=== PATIENT | male | born 1950 | race Caucasian/White ===

== ENCOUNTER 2017-05-06 07:32 | Inpatient (IN) ==
[2017-05-06] MEDS ORDERED: LACTATED RINGERS 1,000 ML IV ONE (08:05)
--- NOTE | 2017-05-06 08:05 | Emergency Department Note ---
Fall HPI - General Chief Complaint: Fall Stated Complaint: Fall Time Seen by Provider: 05/06/17 07:56 Source: EMS Mode of arrival: EMS - History of Present Illness HPI Narrative: This patient has fallen twice since Wednesday last night fell about 830 slipped out of a chair and was unable to get up so spent the night on the floor. His son found him this morning and had a brought to the emergency room. This patient lives alone and admits to being a drinker and has had diabetes for 25 years with peripheral neuropathy and leg weakness. He did injure his left rib cage on Wednesday and a fall but says he feels quite a bit better now from that standpoint. Denies any significant chest pain abdominal pain or focal neurologic weakness and change. - Related Data Home Medications Medication Instructions Recorded Confirmed aspirin 81 mg tablet,delayed 81 mg PO QDAY tab 11/28/14 11/20/16 release atorvastatin 20 mg tablet 20 mg PO QDAY tab 11/28/14 11/20/16 cyanocobalamin (vit B-12) 1,000 1,000 mcg PO QDAY tab 11/28/14 11/20/16 mcg tablet glipizide 5 mg tablet 5 mg PO QAM tab 11/28/14 11/20/16 sildenafil 100 mg tablet 100 mg PO ONCE tab 11/28/14 11/20/16 folic acid 400 mcg tablet 400 mcg PO QDAY 03/21/15 11/20/16 omega-3 fatty acids 1,000 mg 2,000 mg PO BID cap 03/21/15 11/20/16 capsule Previous Rx's Medication Instructions Recorded fenofibrate nanocrystallized 48 mg 48 mg PO QDAY #90 tab 08/08/15 tablet gabapentin 300 mg capsule 300 mg PO BID #180 cap 10/26/16 benazepril 5 mg tablet 2.5 mg PO QDAY #45 tab 01/14/17 Allergies Allergy/AdvReac Type Severity Reaction Status Date / Time acetaminophen [From Percocet] Allergy Unknown Verified 05/06/17 07:38 Oxycodone [From Percocet] Allergy Unknown Verified 05/06/17 07:38 Review of Systems Constitutional: Denies: fever Eyes: Denies: eye pain ENT ED: Denies: ear pain, throat pain Cardiovascular: Denies: chest pain Respiratory: Denies: shortness of breath, cough Gastrointestinal: Denies: abdominal pain, nausea Genitourinary: Denies: dysuria Musculoskeletal: Reports: back pain Integumentary: Denies: rash Neurological: Denies: headache Fall PMH - Past Medical History [facility] Narrative: Medical History (Last Reviewed 11/20/16 @ 14:20 by Selam Frias MD) Chronic kidney disease, stage II (mild) (Chronic) Hypertensive renal disease (Chronic) Chronic kidney disease, stage III (moderate) (Chronic) CKD stage 3 secondary to diabetes (Chronic) ED (erectile dysfunction) of non-organic origin (Chronic) Osteoarthritis of knees, bilateral (Chronic) DM (diabetes mellitus) type II controlled, neurological manifestation (Chronic) Essential hypertension (Chronic) GERD (gastroesophageal reflux disease) (Chronic) Edema (Chronic) Pure hyperglyceridemia (Chronic) Hyperlipidemia (Chronic) Lumbago (Chronic) Renal disease (Chronic) Morbid obesity (Chronic) Drug-induced hepatotoxicity (Chronic) Hemangioma (Chronic) Benign neoplasm of skin (Chronic) Past Surgical History (Last Reviewed 11/20/16 @ 14:20 by Selam Frias MD) History of carpal tunnel release of both wrists (Chronic) Family History (Last Reviewed 11/20/16 @ 14:20 by Selam Frias MD) father History of coronary artery bypass surgery, Onset Age: 81 maternal side of family Malignant neoplasm of colon brother Type 2 diabetes mellitus maternal side family Cerebrovascular accident (CVA) - Social History smoking status: Former smoker Physical Exam This patient really cannot lift his legs off the table. However he has reasonable strength in his feet on testing. Limitations: no limitations General appearance: alert, in no apparent distress Head: atraumatic, normocephalic Eye: Present: normal appearance ENT: normal exam Neck: Present: normal inspection Chest: Present: normal inspection Respiratory: Present: normal lung sounds bilaterally Cardiovascular: Present: regular rate, normal rhythm, normal heart sounds Abdominal: Present: soft. Absent: distention, tenderness Neurological: Present: alert Motor strength - LUE: 5/5 Motor strength - RUE: 5/5 Motor strength - LLE: 1/5 Motor strength - RLE: 1/5 Psychiatric: Present: normal affect, normal mood Skin: Present: warm, dry, intact Course Vital Signs Temperature 97.8 F 05/06/17 07:33 Pulse Rate 98 H 05/06/17 07:33 Respiratory Rate 14 05/06/17 07:33 Blood Pressure 158/99 05/06/17 07:33 Pulse Oximetry (%) 92 05/06/17 07:33 Temperature 97.8 F 05/06/17 07:33 Pulse Rate 93 H 05/06/17 08:51 Respiratory Rate 17 05/06/17 08:51 Blood Pressure 136/100 05/06/17 08:46 Pulse Oximetry (%) 97 05/06/17 08:51 Fall - MDM Narrative Medical decision making narrative: Final disposition on this patient will be per Dr. Mckeon. - Lab Data Result diagrams: 05/06/17 08:40 05/06/17 08:40 Disposition Pt seen by [facility]AME [facility]/PA only: No Clinical Impression: Compression fracture Referrals: Vianey Wolfe ARNP [Primary Care Provider] -
--- NOTE | 2017-05-06 08:39 | XRay Report ---
HISTORY: Reason for Exam:weakness , fell last night with back pain FINDINGS: A thin band of scar or discoid atelectasis is present adjacent to the left diaphragm. The lungs are otherwise clear but incompletely expanded. No pneumothorax or pleural effusion are present and there is no widening of the mediastinum. The heart size is normal. There may be a fracture at the T8 level. IMPRESSION: Possible T8 fracture. Thoracic spine x-rays are recommended. Interpreted and Authenticated by: Suresh Sifuentes 05/06/17
[2017-05-06] MEDS ORDERED: LIDOCAINE JEL 2% 1 TUBE 30GM TOPICAL ONE ×2 (08:43→09:02)
[2017-05-06 09:52] LABS: ALT/SGPT 31 U/l (0-40); Albumin 4.1 gm/dL (3.2-5.2); Albumin/Globulin Ratio 1.2 (1.0-2.3); Alkaline Phosphatase 62 U/L (39-117); Blood Urea Nitrogen 65 mg/dl (8-23)
[2017-05-06 10:10] LABS: Appearance,Urine HAZY; Bacteria,Urine 0 /hpf (0); Bilirubin,Urine NEG (NEG); Color,Urine AMBER; Glucose,Urine (UA) NEGATIVE (NEG); Leukocyte Esterase,Urine NEG /uL (NEG); Mucus,Urine FEW /hpf (0); Protein,Urine 30 mg/dL (NEG); Specific Gravity,Urine 1.026 (1.000-1.035); Urine Amorphous Crystals FEW /hpf (0); Urine Blood 0.2 mg/dL (<0.03); Urine Hyaline Cast 5 /lpf (0-2); Urine RBC 8 /hpf (0-1); Urine Squamous Epithelial Cell < 1 /hpf (0-4); Urine WBC 2 /hpf (0-4)
--- NOTE | 2017-05-06 10:10 | Cat Scan Report ---
History: Fell last night with back pain and compression fracture Findings: The spine was imaged without contrast from the thoracic inlet through mid L2. Sagittal and coronal reformats were created. There is an acute moderate biconcave anterior wedge compression fracture of the T8 vertebra. There is no retropulsion of bone into the central canal. However, there is a medium-sized midline disc herniation at T7-8 causing mild to moderate central canal stenosis. There is mild edema or hematoma in the posterior paraspinal space around the vertebral body. There is gas and nucleus pulposus at T7-8 and T8-9 which is probably due to chronic disc degeneration. A mild biconcave wedge compression fractures present at T12. There is no retropulsion of bone into the canal or disc protrusion. Small amount prevertebral swelling is present. There is a moderate compression deformity involving superior endplate of L2. There is gas in the nucleus pulposus at L1-2. The margin of the depressed superior endplate are sclerotic. This may be an old fracture. There is a [id number] rotary scoliotic curvature. There are ossifications in the left-sided ligamentum flavum at T10-11 protruding into the central canal causing mild spinal canal stenosis. Impression: Moderate wedge compression fracture at T8 and milder compression fracture at T12. These are new fractures. Impression fracture involving the superior endplate of L2. This may be old. Medium-sized midline disc herniation at T7-8 Dr. Mckeon was called with the results Interpreted and Authenticated by: Suresh Sifuentes 05/06/17
[2017-05-06 10:49] LABS: Basophils # (Auto) 0 K/mcL (0.0-0.3); Basophils % (Auto) 0.2 % (0.0-2.0); Eosinophils # (Auto) 0 K/mcL (0.0-0.7); Eosinophils % (Auto) 0.3 % (0.0-7.0); Granulocytes % (Auto) 87.2 % (38.0-78.0); Lymphocytes # (Auto) 0.8 K/mcL (1.5-4.8); Lymphocytes % (Auto) 8.2 % (15.5-49.0); Mean Cell Volume 97.8 fL (80.0-100.0); Mean Corpuscular HGB Conc 33.9 g/dL (31.0-36.0); Mean Corpuscular Hemoglobin 33.2 pg (26.0-34.0); Monocytes # (Auto) 0.4 K/mcL (0.1-0.9); Monocytes % (Auto) 4.1 % (1.0-12.0); Platelet Count 203 K/mcL (140-440); Red Cell Distribution Width 13.6 % (11.5-14.5)
[2017-05-06 11:06] LABS: Creatine Kinase 201 IU/L (24-195); Creatine Kinase MB 4.4 ng/ml (0-4.9); Myoglobin 548 ng/ml (28-72)
[2017-05-06] MEDS ORDERED: HYDROmorphone 2 MG/ML VIAL IV ONE (12:33)
--- NOTE | 2017-05-06 12:48 | Internal Med History&Physical ---
Medical - H&P: HPI Patient information: Note initiated : 05/06/17 at 12:44 pm Service Date, if different from initiated Date: [] Patient: Ramo Álvarez 67 y/o M admitted on for Fall. Chief Complaint: [] History of present illness: Mr. Álvarez is a 67 year old Male history of heavy alcohol use, chronic kidney disease, diabetes, lives by himself. He presents to the emergency room today brought in by his son after a fall. The patient notes that he fell down on Wednesday, in his bathroom. It was about to fall, no injury to his head, he has been having some back pain in the lower back since then and has been bedridden. He has not been eating and drinking very much for the last 3 days. He notes that he is trying to avoid drinking fluids so that he does not have to use the bathroom. Last night he fell down again this time from a chair, and landed on his buttocks. The patient's pain worsened. Given that he is unable to take care of himself, and is in significant pain. He was brought to the emergency room for further evaluation. The patient son was pres obtained from the patient. The patient denies any headache, admits to being dizzy when he stands up, which he attributes to drop in blood pressure. The patient denies any visual or hearing complaints, denies any swallowing difficulties, no chest pain, does have some chest congestion number denies any shortness of breath at rest but does feel short of breath when he tries to move around, which she attributes to pain. The patient denies any nausea presently but did have some nausea and vomiting on Wednesday. The patient denies any constipation or diarrhea, has not been able to pass urine very well because he is trying to limit his fluid intake. The patient has back pain, some pain in the knees as he was trying to crawl on them. Denies any acute skin rashes, admits to being depressed. Denies suicidal ideations. In the emergency room, the patient's vitals were stable, his chest x-ray was negative except for possible T8 fracture, CT of the spine was done which shows an acute fracture of the T8 spine, disc collapse of T7, T8, moderate. Labs show acute renal failure. Patient has mild rise in troponins of 0.04. EKG does not show any acute ST segment changes. the patient is being admitted to the hospital for further management All systems: reviewed and no additional remarkable complaints except as stated ( as per HPI) Medical - H&P: [facility] Medical history: Medical History (Last Reviewed 11/20/16 @ 14:20 by Selam Frias MD) Chronic kidney disease, stage II (mild) (Chronic) Hypertensive renal disease (Chronic) Chronic kidney disease, stage III (moderate) (Chronic) CKD stage 3 secondary to diabetes (Chronic) ED (erectile dysfunction) of non-organic origin (Chronic) Osteoarthritis of knees, bilateral (Chronic) DM (diabetes mellitus) type II controlled, neurological manifestation (Chronic) Essential hypertension (Chronic) GERD (gastroesophageal reflux disease) (Chronic) Edema (Chronic) Pure hyperglyceridemia (Chronic) Hyperlipidemia (Chronic) Lumbago (Chronic) Renal disease (Chronic) Morbid obesity (Chronic) Drug-induced hepatotoxicity (Chronic) Hemangioma (Chronic) Benign neoplasm of skin (Chronic) Surgical history: Past Surgical History (Last Reviewed 11/20/16 @ 14:20 by Selam Frias MD) History of carpal tunnel release of both wrists (Chronic) Pertinent family history: Family History (Last Reviewed 11/20/16 @ 14:20 by Selam Frias MD) father History of coronary artery bypass surgery, Onset Age: 81 maternal side of family Malignant neoplasm of colon brother Type 2 diabetes mellitus maternal side family Cerebrovascular accident (CVA) Medical - H&P: Meds Home Medications Medication Instructions Recorded Confirmed Type aspirin 81 mg tablet,delayed 81 mg PO QDAY tab 11/28/14 11/20/16 History release atorvastatin 20 mg tablet 20 mg PO QDAY tab 11/28/14 11/20/16 History cyanocobalamin (vit B-12) 1,000 1,000 mcg PO QDAY tab 11/28/14 11/20/16 History mcg tablet glipizide 5 mg tablet 5 mg PO QAM tab 11/28/14 11/20/16 History sildenafil 100 mg tablet 100 mg PO ONCE tab 11/28/14 11/20/16 History folic acid 400 mcg tablet 400 mcg PO QDAY 03/21/15 11/20/16 History omega-3 fatty acids 1,000 mg 2,000 mg PO BID cap 03/21/15 11/20/16 History capsule fenofibrate nanocrystallized 48 mg 48 mg PO QDAY #90 tab 08/08/15 11/20/16 Rx tablet gabapentin 300 mg capsule 300 mg PO BID #180 cap 10/26/16 11/20/16 Rx benazepril 5 mg tablet 2.5 mg PO QDAY #45 tab 01/14/17 Rx Allergies Allergy/AdvReac Type Severity Reaction Status Date / Time acetaminophen [From Percocet] Allergy Unknown Verified 05/06/17 07:38 Oxycodone [From Percocet] Allergy Unknown Verified 05/06/17 07:38 Medical - H&P: Exam - Constitutional Vitals: Temp Pulse Resp BP Pulse Ox 97.8 F 92 H 16 167/121 99 05/06/17 07:33 05/06/17 11:26 05/06/17 11:26 05/06/17 11:16 05/06/17 11:26 Exam: GENERAL: The patient is a well-developed, well-nourished in no apparent distress. Is alert and oriented x3. VITAL SIGNS: Reviewed and as noted elsewhere. HEENT: Head is normocephalic and atraumatic. Extraocular muscles are intact. Pupils are equal, round, and reactive to light. Nares appeared normal. Mouth appears any without lesions. Mucous membranes are dry NECK: Normal to inspection, Supple, No lymphadenopathy or thyromegaly. LUNGS: Air entry equal on both sides, no wheezing, crackles or rhonchi noted. No accessory muscles of respiration HEART: Regular rate and rhythm normal, S1 and S2 heard, no Gallop, S3 or Rub Noted, No Gross murmur heard. ABDOMEN: Soft, nontender, and nondistended. Positive bowel sounds. No hepatosplenomegaly was noted. Ibarra in place, very dark urine present. EXTREMITIES: No cyanosis, clubbing, rash, lesions. edema present ++ NEUROLOGIC: Cranial nerves II through XII are grossly intact. Motor and Sensory System Grossly Intact, upper extremity strength is 5/5, lower extermity taco strenght is 3/5, pt attributes this to pain. His sensations in both feet and legs is diminshed due diabetic neuropathy, PSYCHIATRIC: Normal affect, Normal Mood. Appropriate Behavior. SKIN: No ulceration or wounds noted, No jaundice, No rash noted abrasion on right knee. Medical - H&P: Reslt - Labs CBC & Chem 7: 05/06/17 10:20 05/06/17 08:40 Labs: Short CBC 05/06/17 05/06/17 Range/Units 08:40 10:20 WBC TNP 10.0 Hgb TNP 15.0 Hct TNP 44.0 Plt Count TNP 203 BMP 05/06/17 08:40 Sodium 139 Potassium 4.5 Chloride 95 L Carbon Dioxide 23 BUN 65 H Creatinine 2.3 H Glucose 121 H Calcium 9.8 Cardiac Enzymes 05/06/17 05/06/17 Range/Units 08:40 10:20 Total Creatine Kinase 201 H (24-195) IU/L CK-MB (CK-2) 4.4 (0-4.9) ng/ml Troponin T 0.04 H* (0-0.03) ng/ml Liver Function 05/06/17 Range/Units 08:40 Total Bilirubin 1.5 H (0.0-1.0) mg/dL AST 64 H (0-37) U/l ALT 31 (0-40) U/l Alkaline Phosphatase 62 (39-117) U/L Albumin 4.1 (3.2-5.2) gm/dL Urine 05/06/17 Range/Units 09:05 Urine Color [place] Urine Appearance Hazy Urine pH 5.0 (5.0-9.0) Ur Specific [place] 1.026 (1.000-1.035) Urine Protein 30 A (NEG) mg/dL Urine Glucose (UA) Negative (NEG) mg/dL Medical - H&P: A/P - Narrative A/P Narrative: A/P Acute Kidney injury on CKD: Ibarra in place, CK not very high 200, dark urine, likely from poor oral intake, IV fluids for now. Vertebral fracture: T8 vertebral fracture noted, acute, discuss with ortho regarding management, need for TSLO brace? given lower back pain, pelvic pain? get CT Abdomen and pelvis wo look for lumbar and pelvic fractures, this will also help characterize kidneys and liver (cirrhosis?) Back pain: Due to fracture, dilaudid for now Alcohol abuse: Discussed with him need to quit, ciwa protocol, IV banana bag, thiamine mv folate Depression: denies SI or HI, will consider starting anti depressant if patient agrees Diabetes: Hold oral meds, Insulin SSI for now. Hypertension: BP high, but pt in pain, monitor for now, hold DEEPAK benazapril for now, DVT hep sq Diet Diabetic Full code Social History - Social History marital status: occupational status: employed occupation: [employer] - Tobacco smoking status: Former smoker - Alcohol alcohol intake frequency: 2+ drinks per day - Substance use substance use type: does not use
--- NOTE | 2017-05-06 13:24 | Cat Scan Report ---
CLINICAL INFORMATION: Reason for Exam:back pain, fall on buttock, FINDINGS: The abdomen was imaged without contrast from the diaphragm to the symphysis pubis. Sagittal and coronal reformats are created. There are new moderate compression fractures at T8 and T12 and there is a moderate compression fracture deformity involving superior plate of L2. The L2 fracture is probably old. No pelvic or hip fracture are present. The sacrum and coccyx appear normal. There is mild subpleural fibrosis in both lung bases. No pleural effusion is present. Evaluation the abdominal quadrants without contrast is limited. There is mild generalized fatty infiltration of liver. The liver is normal in size and homogeneous. The spleen is normal in size and homogeneous. No abnormality seen within the gallbladder, bile ducts, pancreas, adrenals or kidneys. There is a large amount gas in the cecum and descending colon. Distal colon is normal. The wall of the colon is normal in thickness and there are no diverticula. Urinary bladder is decompressed by Ibarra catheter. There is very little prostate tissue. I Suspect the patient has either had radiation therapy or surgery. The seminal vesicles are small. There are scattered plaques along the wall normal caliber abdominal aorta and iliac arteries. IMPRESSION: New compression fractures at T8 and T12. There is no pelvic fracture or intra-abdominal hematoma Mild fatty infiltration of the liver Interpreted and Authenticated by: Suresh Sifuentes 05/06/17
[2017-05-06] MEDS ORDERED: NALOXONE HCL 0.4 MG/ML VIAL IV PRN (14:11)
[2017-05-06] MEDS ORDERED: ALBUTEROL SULFATE 2.5 MG/3 ML NEBULIZER NEB PRN (14:11)
[2017-05-06] MEDS ORDERED: DEXTROSE 50% 50 ML VIAL IV PRN (14:11)
[2017-05-06] MEDS ORDERED: LORazepam 2 MG/ML VIAL IV PRN (14:11)
[2017-05-06] MEDS ORDERED: MAGNESIUM HYDROXIDE 30 ML ORAL.SUSP PO PRN (14:11)
[2017-05-06] MEDS ORDERED: DEXTROSE 31 GM ORAL.SUSP PO PRN (14:11)
[2017-05-06] MEDS ORDERED: cloNIDine HCL 0.1 MG TABLET PO PRN (14:11)
[2017-05-06] MEDS ORDERED: ONDANSETRON 4 MG/2 ML VIAL IV PRN (14:11)
[2017-05-06] MEDS ORDERED: POTASSIUM CHLORIDE 20 MEQ, MAGNESIUM SULFATE 16.24 MEQ, THIAMINE 100 MG, MVI, ADULT NO.... IV SCH (15:00)
[2017-05-06] MEDS: 0.9 % SODIUM CHLORIDE 10 ML SYRINGE IV SCH ×4 (15:09→21:53)
[2017-05-06] MEDS: 0.9 % SODIUM CHLORIDE 1,000 ML IV SCH (15:24)
[2017-05-06] MEDS: INSULIN LISPRO 1 UNIT/0.01 ML UNIT SQ SCH ×2 (18:01→20:47)
--- NOTE | 2017-05-06 19:09 | History and Physical Report ---
DATE OF ADMISSION: 05/06/2017 IDENTIFICATION: This is a 67-year-old male. CHIEF COMPLAINT: Intractable low back pain. HISTORY: This gentleman sustained a fall about a week ago and then again sustained another fall in the last day or two. He presented to the emergency room after being transported by senior technical architect with complaint of debilitating low back pain and inability to ambulate. He is presently admitted. He does continue to have low back pain and even moving the head of the bed up and down it does have a modest amount of discomfort. He does not complain of any real debilitating pain radiating down into his legs and he does have chronic lower extremity sensory changes secondary to his diabetes. He does not feel that these have changed much. He does have some vague pain when he tries to move his extremities such as flex his hips such as when we move his hips to help roll, but this is deemed primarily secondary to pain inhibition. PAST MEDICAL HISTORY: Secondary to chronic renal disease, hypertension, diabetes, reflux disease and some liver failure. PAST SURGICAL HISTORY: Bilateral carpal tunnel releases but other than that nonspecific or contributory. FAMILY HISTORY: Really not particularly contributory to this problem. MEDICATIONS: Daily aspirin. Statin. Glipizide. Folic acid. Gabapentin. Benazepril. ALLERGIES: CODEINE. REVIEW OF SYSTEMS: Has had no real acute changes in past medical, he does have chronic renal failure and diabetes. Apparently drinks heavily. EXAMINATION: GENERAL: He is awake and alert. He is resting comfortably. HEAD: Normocephalic, atraumatic. EYES: PERRLA, conjunctive clear. ENT: Within normal limits. Head: Normocephalic atraumatic. NECK: Supple without pain on range of motion. HEART: Regular. LUNGS: Clear. ABDOMEN: Benign, although is quite protuberant. BACK: He does have quite a bit of discomfort even with rolling. He does not have excessive pain with palpation. The pain that he describes is lumbosacral junction and even down low, over the sacrum. NEUROLOGICALLY: He has diffusely altered sensory changes. No real gross or focal motor deficits, but just diffusely weak secondary to what seems to be pain inhibition. IMAGING: His CT scan demonstrates a fracture of T8. This may be a more chronic fracture. He has a fracture at T12 which has a large cleft; this appears to potentially be an acute fracture. He has a fracture of L2 superior endplate. I do not see any transsacral fractures. IMPRESSION: Fractures, as above. PLAN: We will obtain a lumbar MRI scan to evaluate the acuity of fractures. He may possibly be a candidate for kyphoplasty. GDD: Job ID: [id number] Doc ID: [id number] Cooper Hector MD
[2017-05-06] MEDS: HEPARIN 5,000 UNIT/ML VIAL SQ SCH (20:52)
[2017-05-06] MEDS: DOCUSATE SODIUM 100 MG CAPSULE PO SCH (21:53)
[2017-05-07] MEDS: 0.9 % SODIUM CHLORIDE 1,000 ML IV SCH ×5 (02:10→19:06)
[2017-05-07] MEDS: 0.9 % SODIUM CHLORIDE 10 ML SYRINGE IV SCH ×6 (04:16→20:46)
[2017-05-07] MEDS: HYDROmorphone 2 MG/ML VIAL IV PRN ×2 (06:11→08:14)
[2017-05-07 06:18] LABS: ALT/SGPT 29 U/l (0-40); Albumin 2.9 gm/dL (3.2-5.2); Albumin/Globulin Ratio 0.8 (1.0-2.3); Alkaline Phosphatase 51 U/L (39-117); Basophils # (Auto) 0.1 K/mcL (0.0-0.3); Basophils % (Auto) 1.3 % (0.0-2.0); Bilirubin,Direct 0.3 mg/dL (0.0-0.3); Blood Urea Nitrogen 60 mg/dl (8-23); Eosinophils # (Auto) 0.2 K/mcL (0.0-0.7); Eosinophils % (Auto) 2.6 % (0.0-7.0); Gamma Glutamyl Transpeptidase 58 U/L (8-61); Granulocytes % (Auto) 79.8 % (38.0-78.0); Lymphocytes # (Auto) 0.8 K/mcL (1.5-4.8); Lymphocytes % (Auto) 11.3 % (15.5-49.0); Mean Cell Volume 98.5 fL (80.0-100.0); Mean Corpuscular HGB Conc 33.9 g/dL (31.0-36.0); Mean Corpuscular Hemoglobin 33.4 pg (26.0-34.0); Monocytes # (Auto) 0.4 K/mcL (0.1-0.9); Platelet Count 156 K/mcL (140-440); RBC 3.82 M/mcL (4.50-5.90); Red Cell Distribution Width 14.1 % (11.5-14.5); Uric Acid 8.7 mg/dL (2.5-8.0)
--- NOTE | 2017-05-07 07:44 | Emergency Department Note ---
General Adult HPI - General Chief complaint: Fall Stated complaint: Fall Time Seen by Provider: 05/06/17 07:56 Source: EMS Mode of arrival: EMS Limitations: no limitations - Related Data Home Medications Medication Instructions Recorded Confirmed aspirin 81 mg tablet,delayed 81 mg PO QDAY tab 11/28/14 05/06/17 release atorvastatin 20 mg tablet 20 mg PO QDAY tab 11/28/14 05/06/17 cyanocobalamin (vit B-12) 1,000 1,000 mcg PO QDAY tab 11/28/14 05/06/17 mcg tablet glipizide 5 mg tablet 5 mg PO QAM tab 11/28/14 05/06/17 sildenafil 100 mg tablet 100 mg PO ONCE tab 11/28/14 05/06/17 folic acid 400 mcg tablet 400 mcg PO QDAY 03/21/15 05/06/17 omega-3 fatty acids 1,000 mg 2,000 mg PO BID cap 03/21/15 05/06/17 capsule Acetaminophen [Tylenol] 500 mg PO Q4-6HP PRN 05/06/17 05/06/17 Cyclobenzaprine [Flexeril] 10 mg PO BIDP PRN 05/06/17 05/06/17 Lansoprazole [Prevacid] 30 mg PO Q48 PRN 05/06/17 05/06/17 Previous Rx's Medication Instructions Recorded fenofibrate nanocrystallized 48 mg 48 mg PO QDAY #90 tab 08/08/15 tablet gabapentin 300 mg capsule 300 mg PO BID #180 cap 10/26/16 benazepril 5 mg tablet 2.5 mg PO QDAY #45 tab 01/14/17 Allergies Allergy/AdvReac Type Severity Reaction Status Date / Time acetaminophen [From Percocet] Allergy Unknown Verified 05/06/17 07:38 Oxycodone [From Percocet] Allergy Unknown Verified 05/06/17 14:57 Review of Systems Constitutional: Denies: fever Eyes: Denies: eye pain ENT ED: Denies: ear pain, throat pain Cardiovascular: Denies: chest pain Respiratory: Denies: shortness of breath, cough Gastrointestinal: Denies: abdominal pain, nausea Genitourinary: Denies: dysuria Musculoskeletal: Reports: back pain Integumentary: Denies: rash Neurological: Denies: headache Past Medical History - Social History smoking status: Former smoker Physical Exam Limitations: no limitations General appearance: alert, in no apparent distress Course Vital Signs Temperature 97.8 F 05/06/17 07:33 Pulse Rate 98 H 05/06/17 07:33 Respiratory Rate 14 05/06/17 07:33 Blood Pressure 158/99 05/06/17 07:33 Pulse Oximetry (%) 92 05/06/17 07:33 Temperature 97.6 F 05/07/17 03:37 Pulse Rate 84 05/07/17 03:37 Respiratory Rate 16 05/07/17 03:37 Blood Pressure 132/89 05/07/17 03:37 Pulse Oximetry (%) 94 05/07/17 03:37 Medical Decision Making - MDM Narrative Medical decision making narrative: Continuation dictation on Dr. cabrera's patient. CT of the T-spine reveals compression fractures disc disease due to the fact patient having increased weakness and back pain patient admitted she will be evaluated by geriatric social worker in the hospital to consider assisted living as no one is around to help him when he has these falls. - Lab Data Result diagrams: 05/07/17 04:45 05/07/17 04:45 Lab Results 05/06/17 05/06/17 05/06/17 Range/Units 08:40 08:40 08:40 WBC TNP RBC TNP Hgb TNP Hct TNP MCV TNP MCH TNP MCHC TNP RDW TNP Plt Count TNP MPV TNP Gran % (38.0-78.0) % Lymph % (Auto) (15.5-49.0) % [place] % (Auto) (1.0-12.0) % Eos % (Auto) (0.0-7.0) % Baso % (Auto) (0.0-2.0) % Gran # (1.8-8.0) K/mcL Lymph # (Auto) (1.5-4.8) K/mcL [place] # (Auto) (0.1-0.9) K/mcL Eos # (Auto) (0.0-0.7) K/mcL Baso # (Auto) (0.0-0.3) K/mcL Sodium 139 (133-145) mmol/L Potassium 4.5 (3.3-5.1) mmol/L Chloride 95 L (96-108) mmol/L Carbon Dioxide 23 (22-30) mmol/L Anion Gap 21.0 H (8-16) BUN 65 H (8-23) mg/dl Creatinine 2.3 H (0.7-1.2) mg/dl GFR Calculation 29 Glucose 121 H (70-105) mg/dL Calcium 9.8 (8.6-10.4) mg/dl Total Bilirubin 1.5 H (0.0-1.0) mg/dL AST 64 H (0-37) U/l ALT 31 (0-40) U/l Alkaline Phosphatase 62 (39-117) U/L Total Creatine Kinase (24-195) IU/L CK-MB (CK-2) (0-4.9) ng/ml Myoglobin (28-72) ng/ml Troponin T 0.04 H* (0-0.03) ng/ml Total Protein 7.4 (5.9-8.4) gm/dL Albumin 4.1 (3.2-5.2) gm/dL Globulin 3.3 (2.2-3.7) gm/dL Albumin/Globulin Ratio 1.2 (1.0-2.3) Urine Color Urine Appearance Urine pH (5.0-9.0) Ur Specific [place] (1.000-1.035) Urine Protein (NEG) mg/dL Urine Glucose (UA) (NEG) mg/dL Urine Ketones (NEG) mg/dL Urine Occult Blood (<0.03) mg/dL Urine Nitrate (NEG) Urine Bilirubin (NEG) mg/dL Urine Urobilinogen (NEG) mg/dL Ur Leukocyte Esterase (NEG) /uL Urine RBC (0-1) /hpf Urine WBC (0-4) /hpf Ur Squamous Epith Cells (0-4) /hpf Amorphous Crystals (0) /hpf Urine Bacteria (0) /hpf Hyaline Casts (0-2) /lpf Urine Mucus (0) /hpf Ur Culture Indicated? Ethyl Alcohol (<0.010) gm/dl 05/06/17 05/06/17 05/06/17 Range/Units 08:40 09:05 10:20 WBC 10.0 RBC 4.50 Hgb 15.0 Hct 44.0 MCV 97.8 MCH 33.2 MCHC 33.9 RDW 13.6 Plt Count 203 MPV 7.5 Gran % 87.2 H (38.0-78.0) % Lymph % (Auto) 8.2 L (15.5-49.0) % [place] % (Auto) 4.1 (1.0-12.0) % Eos % (Auto) 0.3 (0.0-7.0) % Baso % (Auto) 0.2 (0.0-2.0) % Gran # 8.8 H (1.8-8.0) K/mcL Lymph # (Auto) 0.8 L (1.5-4.8) K/mcL [place] # (Auto) 0.4 (0.1-0.9) K/mcL Eos # (Auto) 0 (0.0-0.7) K/mcL Baso # (Auto) 0 (0.0-0.3) K/mcL Sodium (133-145) mmol/L Potassium (3.3-5.1) mmol/L Chloride (96-108) mmol/L Carbon Dioxide (22-30) mmol/L Anion Gap (8-16) BUN (8-23) mg/dl Creatinine (0.7-1.2) mg/dl GFR Calculation Glucose (70-105) mg/dL Calcium (8.6-10.4) mg/dl Total Bilirubin (0.0-1.0) mg/dL AST (0-37) U/l ALT (0-40) U/l Alkaline Phosphatase (39-117) U/L Total Creatine Kinase (24-195) IU/L CK-MB (CK-2) (0-4.9) ng/ml Myoglobin (28-72) ng/ml Troponin T (0-0.03) ng/ml Total Protein (5.9-8.4) gm/dL Albumin (3.2-5.2) gm/dL Globulin (2.2-3.7) gm/dL Albumin/Globulin Ratio (1.0-2.3) Urine Color [place] Urine Appearance Hazy Urine pH 5.0 (5.0-9.0) Ur Specific [place] 1.026 (1.000-1.035) Urine Protein 30 A (NEG) mg/dL Urine Glucose (UA) Negative (NEG) mg/dL Urine Ketones 5/tr A (NEG) mg/dL Urine Occult Blood 0.2 A (<0.03) mg/dL Urine Nitrate Neg (NEG) Urine Bilirubin Neg (NEG) mg/dL Urine Urobilinogen 4.0 A (NEG) mg/dL Ur Leukocyte Esterase Neg (NEG) /uL Urine RBC 8 H (0-1) /hpf Urine WBC 2 (0-4) /hpf Ur Squamous Epith Cells < 1 (0-4) /hpf Amorphous Crystals Few A (0) /hpf Urine Bacteria 0 (0) /hpf Hyaline Casts 5 H (0-2) /lpf Urine Mucus Few (0) /hpf Ur Culture Indicated? No Ethyl Alcohol < 0.010 (<0.010) gm/dl 05/06/17 Range/Units 10:20 WBC RBC Hgb Hct MCV MCH MCHC RDW Plt Count MPV Gran % (38.0-78.0) % Lymph % (Auto) (15.5-49.0) % [place] % (Auto) (1.0-12.0) % Eos % (Auto) (0.0-7.0) % Baso % (Auto) (0.0-2.0) % Gran # (1.8-8.0) K/mcL Lymph # (Auto) (1.5-4.8) K/mcL [place] # (Auto) (0.1-0.9) K/mcL Eos # (Auto) (0.0-0.7) K/mcL Baso # (Auto) (0.0-0.3) K/mcL Sodium (133-145) mmol/L Potassium (3.3-5.1) mmol/L Chloride (96-108) mmol/L Carbon Dioxide (22-30) mmol/L Anion Gap (8-16) BUN (8-23) mg/dl Creatinine (0.7-1.2) mg/dl GFR Calculation Glucose (70-105) mg/dL Calcium (8.6-10.4) mg/dl Total Bilirubin (0.0-1.0) mg/dL AST (0-37) U/l ALT (0-40) U/l Alkaline Phosphatase (39-117) U/L Total Creatine Kinase 201 H (24-195) IU/L CK-MB (CK-2) 4.4 (0-4.9) ng/ml Myoglobin 548 H (28-72) ng/ml Troponin T (0-0.03) ng/ml Total Protein (5.9-8.4) gm/dL Albumin (3.2-5.2) gm/dL Globulin (2.2-3.7) gm/dL Albumin/Globulin Ratio (1.0-2.3) Urine Color Urine Appearance Urine pH (5.0-9.0) Ur Specific [place] (1.000-1.035) Urine Protein (NEG) mg/dL Urine Glucose (UA) (NEG) mg/dL Urine Ketones (NEG) mg/dL Urine Occult Blood (<0.03) mg/dL Urine Nitrate (NEG) Urine Bilirubin (NEG) mg/dL Urine Urobilinogen (NEG) mg/dL Ur Leukocyte Esterase (NEG) /uL Urine RBC (0-1) /hpf Urine WBC (0-4) /hpf Ur Squamous Epith Cells (0-4) /hpf Amorphous Crystals (0) /hpf Urine Bacteria (0) /hpf Hyaline Casts (0-2) /lpf Urine Mucus (0) /hpf Ur Culture Indicated? Ethyl Alcohol (<0.010) gm/dl Disposition Pt seen by JEWELRY SALES REPRESENTATIVE/PA only: No Clinical Impression: Compression fracture Disposition: Xfer As Inpt ([facility]) Condition: Good
[2017-05-07] MEDS: INSULIN LISPRO 1 UNIT/0.01 ML UNIT SQ SCH ×4 (07:48→20:58)
--- NOTE | 2017-05-07 09:20 | Magnetic Resonance Report ---
CLINICAL INFORMATION:Reason for Exam:Fracture the T12 and L2 COMPARISON: Abdomen CT on 05/06/17 TECHNIQUE: Sagittal T1 FLAIR, STIR, fast spin echo T2, axial T2 weighted images were acquired. FINDINGS: There is an acute mild to moderate biconcave wedge compression fracture of the T12 vertebra. There is diffuse bone marrow edema. There is also some intraosseous blood within the inferior endplate. There is mild retropulsion of bone into the central canal and there is also mild edema in the ventral epidural space extending from the lower level of T11 to the lower level of T12. This is causing mild central canal stenosis but there is no cord compression. This fracture has remained stable since prior CT scan. There is also a moderate compression deformity in the midline of the superior endplate of L2. The anterior and posterior cortical borders of this vertebra are normal in height. There is low level edema around the depressed endplate. This is subacute to chronic. The remainder the lumbar vertebra are normal in height signal and alignment. L5-S1 disc is normal. Mild arthritis is present in both facets. There is no stenosis. L4-5 disc is a small broad-based bulge. There is mild to moderate arthritis in the facets. Central canal is normal. There is mild stenosis of both neural foramina. L3-4 disc is normal in height but partially desiccated. There is a small broad-based bulge and mild arthritis in the facets. There is mild stenosis of the right-sided neural foramen. L2-3 disc space level is normal. The L1-2 disc is normal in height. There is a small midline bulge extending to the left of midline. There is moderate stenosis of the neural foramina bilaterally. The T11-12 and T12-L1 disc spaces are normal. The spinal cord is normal and the conus is at the upper level of L2. IMPRESSION: Acute biconcave compression fracture at T12 with mild retropulsion of bone into the central canal, causing mild central canal stenosis Subacute to chronic compression fracture involving superior plate of L2 Posterior bulging discs at L1-2, L3-4 and L4-5. No disc herniation is present Interpreted and Authenticated by: Suresh Sifuentes 05/07/17
[2017-05-07] MEDS: HEPARIN 5,000 UNIT/ML VIAL SQ SCH ×2 (09:49→20:44)
[2017-05-07] MEDS: DOCUSATE SODIUM 100 MG CAPSULE PO SCH ×2 (09:49→20:43)
[2017-05-07] MEDS: FOLIC ACID 1 MG TABLET PO SCH (09:49)
[2017-05-07] MEDS: MULTIVIT,THER IRON,CA,FA & MIN 1 TABLET PO SCH (09:50)
[2017-05-07] MEDS: THIAMINE 100 MG in 0.9 % SODIUM CHLORIDE 50 ML IV SCH (11:00)
--- NOTE | 2017-05-07 11:27 | Orthopedic Progress Note ---
Subjective Patient information: Note initiated : 05/07/17 at 11:24 am Service Date, if different from initiated Date: [] Patient: Ramo Álvarez 67 y/o M admitted on 05/06/17 for Fall. Chief Complaint: [complains of low back pain but has been mobilized to standing so generally improved. ] Objective Vital signs: Vital Signs Temp Pulse Pulse Resp BP BP Pulse Ox 05/07/17 07:59 97.4 F 76 16 116/82 91 05/07/17 03:37 97.6 F 84 16 132/89 94 05/06/17 22:25 96.4 F L 88 21 126/82 92 05/06/17 21:28 24 H 05/06/17 20:56 96.8 F L 96 H 24 H 119/76 93 05/06/17 20:20 96.8 F L 96 H 24 H 119/76 93 05/06/17 18:11 96.7 F L 18 123/82 97 05/06/17 16:00 96.9 F L 96 H 20 133/102 96 05/06/17 14:55 96.9 F L 96 H 20 133/102 96 05/06/17 14:11 96 05/06/17 13:54 97.8 F 20 162/102 93 05/06/17 13:25 97.8 F 88 21 162/101 93 05/06/17 13:21 88 93 05/06/17 12:46 21 162/101 05/06/17 12:31 21 158/104 05/06/17 12:16 22 162/115 05/06/17 12:01 23 H 157/113 05/06/17 11:46 20 160/124 05/06/17 11:31 20 173/119 05/06/17 11:26 92 H 16 99 Intake and Output 05/06/17 05/07/17 05/07/17 21:59 05:59 13:59 Intake Total 1025 / 1025 1220 / 1220 1000 / 1000 Output Total 350 / 350 490 / 490 Balance 675 / 675 730 / 730 1000 / 1000 Intake: IV 1025 / 1025 1000 / 1000 1000 / 1000 Sodium Chloride 0.9% 1,000 ml @ 1000 / 1000 1000 / 1000 150 mls/hr IV .Q6H40M [facility] Rx#: [id number] Potassium Chloride 20 Meq 1025 / 1025 Magnesium Sulfate 16.24 Meq Vitamin B1 100 mg Infuvite Adult 10 ml In Sodium Chloride 0.9% 1,000 ml @ 250 mls/hr IV . Q4H6M [facility] Rx#:[id number] Oral 220 / 220 Output: Urine Catheter Amount 350 / 350 490 / 490 Other: Weight 254 lb 5 oz Intake & Output: Intake & Output 05/06/17 05/07/17 05/07/17 21:59 05:59 13:59 Intake Total 1025 / 1025 1220 / 1220 1000 / 1000 Output Total 350 / 350 490 / 490 Balance 675 / 675 730 / 730 1000 / 1000 Weight 254 lb 5 oz Intake: IV 1025 / 1025 1000 / 1000 1000 / 1000 Sodium Chloride 0.9% 1,000 ml @ 1000 / 1000 1000 / 1000 150 mls/hr IV .Q6H40M [facility] Rx#: [id number] Potassium Chloride 20 Meq 1025 / 1025 Magnesium Sulfate 16.24 Meq Vitamin B1 100 mg Infuvite Adult 10 ml In Sodium Chloride 0.9% 1,000 ml @ 250 mls/hr IV . Q4H6M [facility] Rx#:[id number] Oral 220 / 220 Output: Urine Catheter Amount 350 / 350 490 / 490 Neurological exam IM: Yes neurovascular intact - Labs CBC & BMP: 05/07/17 04:45 05/07/17 04:45 Labs: 05/07/17 05/06/17 05/06/17 04:45 10:20 08:40 Hgb 12.8 L 15.0 TNP Hct 37.6 L 44.0 TNP Assessment and Plan (1) Compression fracture acute fracture T12, L3 will continue to mobilize and see how pain tolerated will also brace. may consider Kyphoplasty as outpatient Status: Acute
[2017-05-07] MEDS ORDERED: ACETAMINOPHEN 1,000 MG/100 ML BOTTLE IV ONE (12:00)
[2017-05-07] MEDS: HYDROmorphone 2 MG TABLET PO PRN ×2 (15:13→20:43)
--- NOTE | 2017-05-07 18:18 | Internal Med Progress Note ---
Medical - PN: Subj Patient information: Note initiated : 05/07/17 at 6:16 pm Service Date, if different from initiated Date: [] Patient: Ramo Álvarez 67 y/o M admitted on 05/06/17 for Fall/T8 Vertebral Fracture . Chief Complaint: [] Interval history: Mr. Álvarez is a 67 year old Male history of heavy alcohol use, chronic kidney disease, diabetes, lives by himself. He presents to the emergency room today brought in by his son after a fall. The patient notes that he fell down on Wednesday, in his bathroom. It was about to fall, no injury to his head, he has been having some back pain in the lower back since then and has been bedridden. He has not been eating and drinking very much for the last 3 days. He notes that he is trying to avoid drinking fluids so that he does not have to use the bathroom. Last night he fell down again this time from a chair, and landed on his buttocks. The patient's pain worsened. Given that he is unable to take care of himself, and is in significant pain. He was brought to the emergency room for further evaluation. The patient son was pres obtained from the patient. The patient denies any headache, admits to being dizzy when he stands up, which he attributes to drop in blood pressure. The patient denies any visual or hearing complaints, denies any swallowing difficulties, no chest pain, does have some chest congestion number denies any shortness of breath at rest but does feel short of breath when he tries to move around, which she attributes to pain. The patient denies any nausea presently but did have some nausea and vomiting on Wednesday. The patient denies any constipation or diarrhea, has not been able to pass urine very well because he is trying to limit his fluid intake. The patient has back pain, some pain in the knees as he was trying to crawl on them. Denies any acute skin rashes, admits to being depressed. Denies suicidal ideations. In the emergency room, the patient's vitals were stable, his chest x-ray was negative except for possible T8 fracture, CT of the spine was done which shows an acute fracture of the T8 spine, disc collapse of T7, T8, moderate. Labs show acute renal failure. Patient has mild rise in troponins of 0.04. EKG does not show any acute ST segment changes. May 07 patient seen and examined, no acute overnight events, patient does not have pain if she is not moving her lower has back pain when he tries to move. Seen by orthopedics, MRI done, L2 fracture noted, otherwise surgery according to orthopedic note patient also think about it. He has a brace at home which she plans to bring. Okay for weightbearing according to Ortho on ciwa, not in DT Pertinent ROS: Denies headache, dizziness Denies chest pain, palpitations Denies cough or shortness of breath Denies abdominal pain, nausea or vomiting. - Constitutional Vitals: Vital Signs Temp Pulse Resp BP Pulse Ox 97.9 F 78 20 137/61 93 05/07/17 15:19 05/07/17 11:35 05/07/17 15:19 05/07/17 15:19 05/07/17 15:19 Period Temp Pulse Resp BP Sys/Bella Pulse Ox Last 24 Hr 96.4 F-97.9 F 76-96 16-24 116-137/61-89 91-94 Intake and Output 05/07/17 05/07/17 05/07/17 05:59 13:59 21:59 Intake Total 1220 / 1220 1240 / 1240 400 / 400 Output Total 490 / 490 475 / 475 275 / 275 Balance 730 / 730 765 / 765 125 / 125 Weight 254 lb 5 oz 254 lb 5 oz Patient Weight 05/08/17 05:59 Weight 254 lb 5 oz Intake & Output: Intake & Output 05/07/17 05/07/17 05/07/17 05:59 13:59 21:59 Intake Total 1220 / 1220 1240 / 1240 400 / 400 Output Total 490 / 490 475 / 475 275 / 275 Balance 730 / 730 765 / 765 125 / 125 Weight 254 lb 5 oz 254 lb 5 oz Intake: IV 1000 / 1000 1000 / 1000 Sodium Chloride 0.9% 1,000 ml @ 1000 / 1000 1000 / 1000 150 mls/hr IV .Q6H40M [facility] Rx#: [id number] Oral 220 / 220 240 / 240 400 / 400 Output: Urine Catheter Amount 490 / 490 475 / 475 275 / 275 Other: Meal Lunch Percent of Meal Consumed 100% Exam: Constitutional; Afebrile, cooperative, alert, not in distress. Neck- Midline trachea, supple Respiratory system: Air Entry equal on both sides, No crackles or wheezing, no rhonchi. CVS- Rate rhythm regular, S1,S2 heard, no gallop, no rub. 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 Medical - PN: Obj Da - Labs CBC & Chem 7: 05/07/17 04:45 05/07/17 04:45 Labs: Abnormal Lab Results 05/07/17 05/07/17 05/06/17 04:45 04:45 10:20 RBC 3.82 L Hgb 12.8 L Hct 37.6 L Gran % 79.8 H Lymph % (Auto) 11.3 L Gran # Lymph # (Auto) 0.8 L Chloride Carbon Dioxide 20 L Anion Gap 18.0 H BUN 60 H Creatinine 1.4 H Glucose Uric Acid 8.7 H Total Bilirubin AST 50 H Lactate Dehydrogenase 298 H Total Creatine Kinase 201 H Myoglobin 548 H Troponin T Albumin 2.9 L Albumin/Globulin Ratio 0.8 L Urine Protein Urine Ketones Urine Occult Blood Urine Urobilinogen Urine RBC Amorphous Crystals Hyaline Casts 05/06/17 05/06/17 05/06/17 10:20 09:05 08:40 RBC Hgb Hct Gran % 87.2 H Lymph % (Auto) 8.2 L Gran # 8.8 H Lymph # (Auto) 0.8 L Chloride Carbon Dioxide Anion Gap BUN Creatinine Glucose Uric Acid Total Bilirubin AST Lactate Dehydrogenase Total Creatine Kinase Myoglobin Troponin T 0.04 H* Albumin Albumin/Globulin Ratio Urine Protein 30 A Urine Ketones 5/tr A Urine Occult Blood 0.2 A Urine Urobilinogen 4.0 A Urine RBC 8 H Amorphous Crystals Few A Hyaline Casts 5 H 05/06/17 08:40 RBC Hgb Hct Gran % Lymph % (Auto) Gran # Lymph # (Auto) Chloride 95 L Carbon Dioxide Anion Gap 21.0 H BUN 65 H Creatinine 2.3 H Glucose 121 H Uric Acid Total Bilirubin 1.5 H AST 64 H Lactate Dehydrogenase Total Creatine Kinase Myoglobin Troponin T Albumin Albumin/Globulin Ratio Urine Protein Urine Ketones Urine Occult Blood Urine Urobilinogen Urine RBC Amorphous Crystals Hyaline Casts Meds: Medications Albuterol Sulfate (Ventolin) 2.5 mg NEB Q2HP PRN PRN Reason: Shortness Of Breath Clonidine HCl (Catapres) 0.1 mg PO Q4HP PRN PRN Reason: Alcohol Withdrawal Dextrose (Dextrose 50%) 0 ml IV UD PRN PRN Reason: Hypoglycemia Diagnostic Test (Pha) (Accu-Chek) 1 each FS ACHS [facility] Last Admin: 05/07/17 17:14 Dose: 1 each Docusate Sodium (Colace) 100 mg PO BID [facility] Last Admin: 05/07/17 09:49 Dose: Not Given Folic Acid (Folic Acid) 1 mg PO DAILY [facility] Last Admin: 05/07/17 09:49 Dose: Not Given Glucose (Insta-Glucose) 15 gm PO PRN PRN PRN Reason: Hypoglycemia Heparin Sodium (Porcine) (Heparin) 5,000 unit SQ Q12 [facility] Last Admin: 05/07/17 09:49 Dose: Not Given Hydromorphone HCl (Dilaudid) 0.5 mg IV Q2HP PRN PRN Reason: PAIN LEVEL > 6 Last Admin: 05/07/17 08:14 Dose: 0.5 mg Hydromorphone HCl (Dilaudid) 2 mg PO Q4HP PRN PRN Reason: Pain Last Admin: 05/07/17 15:13 Dose: 2 mg Sodium Chloride (Sodium Chloride 0.9%) 1,000 mls @ 150 mls/hr IV .Q6H40M [facility] Last Admin: 05/07/17 15:58 Dose: Not Given Thiamine HCl 100 mg/ Sodium (Chloride) 51 mls @ 50 mls/hr IV DAILY [facility] Last Admin: 05/07/17 11:00 Dose: 50 mls/hr Insulin Human Lispro (Humalog) 0 unit SQ ACHS [facility] PRN Reason: Protocol Last Admin: 05/07/17 17:15 Dose: Not Given Iron Carb/Multivit/Grant/Folic Acid (Multivitamin W/Minerals) 1 tab PO DAILY [facility] Last Admin: 05/07/17 09:50 Dose: Not Given Lorazepam (Ativan) 0 mg IV Q4HP PRN; Protocol PRN Reason: Alcohol Withdrawal Magnesium Hydroxide (Milk Of Magnesia) 30 ml PO DAILYP PRN PRN Reason: Constipation Naloxone HCl (Narcan) 0.1 mg IV Q2MIN PRN PRN Reason: Opiate Reversal Ondansetron HCl (Zofran) 4 mg IV Q6HP PRN PRN Reason: Nausea And Vomiting Sodium Chloride (Saline Flush) 10 ml IV Q8 [facility] Last Admin: 05/07/17 13:51 Dose: Not Given Sodium Chloride (Saline Flush) 10 ml IV Q8 [facility] Last Admin: 05/07/17 13:51 Dose: Not Given Medical - PN: A/P - Time Spent With Patient Total time spent is greater than 50% in coordination of care (as documented) at patient's floor/unit and/or counseling patient: - Narrative A/P Narrative: A/P Acute Kidney injury on CKD: Ibarra in place, creat improving, this AM was 1.4, continue IVF Vertebral fracture: pain managmenet, TSLO brace, follow up with ortho as outpatient. Back pain: Due to fracture, dilaudid for now, IV and oral, tolerating well. Alcohol abuse: Discussed with him need to quit, ciwa protocol, IV banana bag, thiamine mv folate, no DT so ar Depression: denies SI or HI, will consider starting anti depressant if patient agrees Diabetes: Hold oral meds, Insulin SSI for now. Hypertension: BP stable, monitor for now, hold DEEPAK benazapril for now, consider resuming once renal function is back to baseline. DVT hep sq Diet Diabetic Full code Medical - PN: Qual - VTE Deep Vein Thrombosis/Pulmonary Embolism Present on Admission: No
[2017-05-08] MEDS: 0.9 % SODIUM CHLORIDE 1,000 ML IV SCH ×4 (01:46→15:53)
[2017-05-08 06:10] LABS: Basophils # (Auto) 0 K/mcL (0.0-0.3); Basophils % (Auto) 0.1 % (0.0-2.0); Eosinophils # (Auto) 0.3 K/mcL (0.0-0.7); Eosinophils % (Auto) 4.7 % (0.0-7.0); Granulocytes % (Auto) 75.5 % (38.0-78.0); Lymphocytes # (Auto) 0.8 K/mcL (1.5-4.8); Lymphocytes % (Auto) 12.7 % (15.5-49.0); Mean Cell Volume 100.9 fL (80.0-100.0); Mean Corpuscular HGB Conc 33.2 g/dL (31.0-36.0); Mean Corpuscular Hemoglobin 33.5 pg (26.0-34.0); Monocytes # (Auto) 0.4 K/mcL (0.1-0.9); Platelet Count 155 K/mcL (140-440); RBC 3.67 M/mcL (4.50-5.90); Red Cell Distribution Width 14.6 % (11.5-14.5)
[2017-05-08 06:33] LABS: ALT/SGPT 29 U/l (0-40); Alkaline Phosphatase 54 U/L (39-117); Bilirubin,Direct 0.4 mg/dL (0.0-0.3); Blood Urea Nitrogen 40 mg/dl (8-23); Gamma Glutamyl Transpeptidase 60 U/L (8-61); Uric Acid 6.3 mg/dL (2.5-8.0)
[2017-05-08] MEDS: 0.9 % SODIUM CHLORIDE 10 ML SYRINGE IV SCH ×6 (07:18→20:45)
[2017-05-08] MEDS: HYDROmorphone 2 MG TABLET PO PRN ×2 (07:45→16:57)
[2017-05-08] MEDS: INSULIN LISPRO 1 UNIT/0.01 ML UNIT SQ SCH ×4 (07:47→20:42)
[2017-05-08] MEDS: DOCUSATE SODIUM 100 MG CAPSULE PO SCH ×2 (09:14→20:41)
[2017-05-08] MEDS: FOLIC ACID 1 MG TABLET PO SCH (09:14)
[2017-05-08] MEDS: MULTIVIT,THER IRON,CA,FA & MIN 1 TABLET PO SCH (09:14)
[2017-05-08] MEDS: HEPARIN 5,000 UNIT/ML VIAL SQ SCH ×2 (09:14→20:41)
[2017-05-08] MEDS: THIAMINE 100 MG in 0.9 % SODIUM CHLORIDE 50 ML IV SCH (09:18)
--- NOTE | 2017-05-08 15:00 | Internal Med Progress Note ---
Medical - PN: Subj Patient information: Note initiated : 05/08/17 at 2:57 pm Service Date, if different from initiated Date: [] Patient: Ramo Álvarez 67 y/o M admitted on 05/06/17 for Fall/T8 Vertebral Fracture . Chief Complaint: [] Interval history: Mr. Álvarez is a 67 year old Male history of heavy alcohol use, chronic kidney disease, diabetes, lives by himself. He presents to the emergency room today brought in by his son after a fall. The patient notes that he fell down on Wednesday, in his bathroom. It was about to fall, no injury to his head, he has been having some back pain in the lower back since then and has been bedridden. He has not been eating and drinking very much for the last 3 days. He notes that he is trying to avoid drinking fluids so that he does not have to use the bathroom. Last night he fell down again this time from a chair, and landed on his buttocks. The patient's pain worsened. Given that he is unable to take care of himself, and is in significant pain. He was brought to the emergency room for further evaluation. The patient son was pres obtained from the patient. The patient denies any headache, admits to being dizzy when he stands up, which he attributes to drop in blood pressure. The patient denies any visual or hearing complaints, denies any swallowing difficulties, no chest pain, does have some chest congestion number denies any shortness of breath at rest but does feel short of breath when he tries to move around, which she attributes to pain. The patient denies any nausea presently but did have some nausea and vomiting on Wednesday. The patient denies any constipation or diarrhea, has not been able to pass urine very well because he is trying to limit his fluid intake. The patient has back pain, some pain in the knees as he was trying to crawl on them. Denies any acute skin rashes, admits to being depressed. Denies suicidal ideations. In the emergency room, the patient's vitals were stable, his chest x-ray was negative except for possible T8 fracture, CT of the spine was done which shows an acute fracture of the T8 spine, disc collapse of T7, T8, moderate. Labs show acute renal failure. Patient has mild rise in troponins of 0.04. EKG does not show any acute ST segment changes. May 07 patient seen and examined, no acute overnight events, patient does not have pain if she is not moving her lower has back pain when he tries to move. Seen by orthopedics, MRI done, L2 fracture noted, otherwise surgery according to orthopedic note patient also think about it. He has a brace at home which she plans to bring. Okay for weightbearing according to Ortho on ciwa, not in DT May 08 patient seen and examined events, or to consult appreciated. Patient is still in bed. Back pain severe when he tries to ambulate, trying to work with physical therapy. Renal function back to normal, urine still dark, CK level is back to normal. Continue IV fluids at 75 cc an hour Plan of care reviewed with the patient, he will likely need placement at [facility] if he is unable to am living by himself by Wednesday. Pertinent ROS: Denies headache, dizziness Denies chest pain, palpitations Denies cough or shortness of breath Denies abdominal pain, nausea or vomiting. back pain present - Constitutional Vitals: Vital Signs Temp Pulse Resp BP Pulse Ox 98.5 F 93 H 16 121/81 92 05/08/17 12:00 05/08/17 04:00 05/08/17 12:00 05/08/17 12:00 05/08/17 14:00 Period Temp Pulse Resp BP Sys/Bella Pulse Ox Last 24 Hr 97.7 F-98.5 F 81-93 16-20 120-143/61-88 91-97 Intake and Output 05/08/17 05/08/17 05/08/17 05:59 13:59 21:59 Intake Total 1400 / 1400 1408 / 1408 1000 / 1000 Output Total 475 / 475 Balance 925 / 925 1408 / 1408 1000 / 1000 Intake & Output: Intake & Output 05/08/17 05/08/17 05/08/17 05:59 13:59 21:59 Intake Total 1400 / 1400 1408 / 1408 1000 / 1000 Output Total 475 / 475 Balance 925 / 925 1408 / 1408 1000 / 1000 Intake: IV 1000 / 1000 1048 / 1048 1000 / 1000 Sodium Chloride 0.9% 1,000 ml @ 1000 / 1000 897 / 897 1000 / 1000 150 mls/hr IV .[id number] [facility] Rx#: [id number] Vitamin B1 100 mg In Sodium 51 / 51 Chloride 0.9% 50 ml @ 50 mls/hr IV DAILY [facility] Rx#:[id number] Oral 400 / 400 360 / 360 Output: Urine Catheter Amount 475 / 475 Other: Meal Breakfast Percent of Meal Consumed 100% Exam: Constitutional; Afebrile, cooperative, alert, not in distress. Eyes- No icterus, , No periorbital swelling Ears- Ext ear normal, hearing normal to conversation. Neck- Midline trachea, supple Respiratory system: Air Entry equal on both sides, No crackles or wheezing, no rhonchi. anterior exam only CVS- Rate rhythm regular, S1,S2 heard, no gallop, no rub. 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 Medical - PN: Obj Da - Labs CBC & Chem 7: 05/08/17 04:30 05/08/17 04:30 Labs: Abnormal Lab Results 05/08/17 05/08/17 05/08/17 04:30 04:30 04:30 RBC 3.67 L Hgb 12.3 L Hct 37.1 L MCV 100.9 H RDW 14.6 H Gran % Lymph % (Auto) 12.7 L Gran # Lymph # (Auto) 0.8 L Chloride Carbon Dioxide Anion Gap BUN 40 H Creatinine Glucose Uric Acid Total Bilirubin Direct Bilirubin 0.4 H AST 43 H Lactate Dehydrogenase Total Creatine Kinase 23 L Myoglobin Troponin T Albumin 3.0 L Albumin/Globulin Ratio Urine Protein Urine Ketones Urine Occult Blood Urine Urobilinogen Urine RBC Amorphous Crystals Hyaline Casts 05/07/17 05/07/17 05/06/17 04:45 04:45 10:20 RBC 3.82 L Hgb 12.8 L Hct 37.6 L MCV RDW Gran % 79.8 H Lymph % (Auto) 11.3 L Gran # Lymph # (Auto) 0.8 L Chloride Carbon Dioxide 20 L Anion Gap 18.0 H BUN 60 H Creatinine 1.4 H Glucose Uric Acid 8.7 H Total Bilirubin Direct Bilirubin AST 50 H Lactate Dehydrogenase 298 H Total Creatine Kinase 201 H Myoglobin 548 H Troponin T Albumin 2.9 L Albumin/Globulin Ratio 0.8 L Urine Protein Urine Ketones Urine Occult Blood Urine Urobilinogen Urine RBC Amorphous Crystals Hyaline Casts 05/06/17 05/06/17 05/06/17 10:20 09:05 08:40 RBC Hgb Hct MCV RDW Gran % 87.2 H Lymph % (Auto) 8.2 L Gran # 8.8 H Lymph # (Auto) 0.8 L Chloride Carbon Dioxide Anion Gap BUN Creatinine Glucose Uric Acid Total Bilirubin Direct Bilirubin AST Lactate Dehydrogenase Total Creatine Kinase Myoglobin Troponin T 0.04 H* Albumin Albumin/Globulin Ratio Urine Protein 30 A Urine Ketones 5/tr A Urine Occult Blood 0.2 A Urine Urobilinogen 4.0 A Urine RBC 8 H Amorphous Crystals Few A Hyaline Casts 5 H 05/06/17 08:40 RBC Hgb Hct MCV RDW Gran % Lymph % (Auto) Gran # Lymph # (Auto) Chloride 95 L Carbon Dioxide Anion Gap 21.0 H BUN 65 H Creatinine 2.3 H Glucose 121 H Uric Acid Total Bilirubin 1.5 H Direct Bilirubin AST 64 H Lactate Dehydrogenase Total Creatine Kinase Myoglobin Troponin T Albumin Albumin/Globulin Ratio Urine Protein Urine Ketones Urine Occult Blood Urine Urobilinogen Urine RBC Amorphous Crystals Hyaline Casts Meds: Medications Albuterol Sulfate (Ventolin) 2.5 mg NEB Q2HP PRN PRN Reason: Shortness Of Breath Clonidine HCl (Catapres) 0.1 mg PO Q4HP PRN PRN Reason: Alcohol Withdrawal Dextrose (Dextrose 50%) 0 ml IV UD PRN PRN Reason: Hypoglycemia Diagnostic Test (Pha) (Accu-Chek) 1 each FS ACHS [facility] Last Admin: 05/08/17 12:35 Dose: 1 each Docusate Sodium (Colace) 100 mg PO BID [facility] Last Admin: 05/08/17 09:14 Dose: 100 mg Folic Acid (Folic Acid) 1 mg PO DAILY [facility] Last Admin: 05/08/17 09:14 Dose: 1 mg Glucose (Insta-Glucose) 15 gm PO PRN PRN PRN Reason: Hypoglycemia Heparin Sodium (Porcine) (Heparin) 5,000 unit SQ Q12 [facility] Last Admin: 05/08/17 09:14 Dose: 5,000 unit Hydromorphone HCl (Dilaudid) 0.5 mg IV Q2HP PRN PRN Reason: PAIN LEVEL > 6 Last Admin: 05/07/17 08:14 Dose: 0.5 mg Hydromorphone HCl (Dilaudid) 2 mg PO Q4HP PRN PRN Reason: Pain Last Admin: 05/08/17 07:45 Dose: 2 mg Thiamine HCl 100 mg/ Sodium (Chloride) 51 mls @ 50 mls/hr IV DAILY [facility] Last Infusion: 05/08/17 10:18 Dose: Infused Sodium Chloride (Sodium Chloride 0.9%) 1,000 mls @ 75 mls/hr IV .[id number] [facility] Stop: 05/10/17 05:24 Insulin Human Lispro (Humalog) 0 unit SQ ACHS [facility] PRN Reason: Protocol Last Admin: 05/08/17 12:35 Dose: Not Given Iron Carb/Multivit/[place]/Folic Acid (Multivitamin W/Minerals) 1 tab PO DAILY [facility] Last Admin: 05/08/17 09:14 Dose: 1 tab Lorazepam (Ativan) 0 mg IV Q4HP PRN; Protocol PRN Reason: Alcohol Withdrawal Magnesium Hydroxide (Milk Of Magnesia) 30 ml PO DAILYP PRN PRN Reason: Constipation Naloxone HCl (Narcan) 0.1 mg IV Q2MIN PRN PRN Reason: Opiate Reversal Ondansetron HCl (Zofran) 4 mg IV Q6HP PRN PRN Reason: Nausea And Vomiting Sodium Chloride (Saline Flush) 10 ml IV Q8 [facility] Last Admin: 05/08/17 14:42 Dose: Not Given Sodium Chloride (Saline Flush) 10 ml IV Q8 [facility] Last Admin: 05/08/17 14:42 Dose: Not Given Medical - PN: A/P - Time Spent With Patient Total time spent is greater than 50% in coordination of care (as documented) at patient's floor/unit and/or counseling patient: - Narrative A/P Narrative: A/P Acute Kidney injury on CKD: Ibarra in place, creat improving, today creatinine is 1.1 back to baseline Vertebral fracture: pain managmenet, TSLO brace, follow up with ortho as outpatient. resume gabapentin, resume cyclobenzapril Back pain: Due to fracture, dilaudid for now, IV and oral, tolerating well. Alcohol abuse: Discussed with him need to quit, ciwa protocol, IV banana bag, thiamine mv folate, no DT so ar Depression: denies SI or HI, will consider starting anti depressant if patient agrees Diabetes: Hold oral meds, Insulin SSI for now. Hypertension: BP stable, monitor for now, resume kala inhibitor. HLD resume statin and fenofibrate. DVT hep sq Diet Diabetic Full code Medical - PN: Qual - VTE Deep Vein Thrombosis/Pulmonary Embolism Present on Admission: No
[2017-05-08] MEDS ORDERED: ACETAMINOPHEN 500 MG TABLET PO PRN (15:01)
[2017-05-08] MEDS: GABAPENTIN 300 MG CAPSULE PO SCH (20:41)
[2017-05-09] MEDS: 0.9 % SODIUM CHLORIDE 1,000 ML IV SCH ×3 (03:56→19:05)
[2017-05-09] MEDS: 0.9 % SODIUM CHLORIDE 10 ML SYRINGE IV SCH ×6 (05:55→20:48)
[2017-05-09 05:59] LABS: Basophils # (Auto) 0 K/mcL (0.0-0.3); Basophils % (Auto) 0.6 % (0.0-2.0); Eosinophils # (Auto) 0.1 K/mcL (0.0-0.7); Eosinophils % (Auto) 3.4 % (0.0-7.0); Granulocytes % (Auto) 68.2 % (38.0-78.0); Lymphocytes # (Auto) 0.7 K/mcL (1.5-4.8); Mean Cell Volume 98.9 fL (80.0-100.0); Mean Corpuscular HGB Conc 33.9 g/dL (31.0-36.0); Mean Corpuscular Hemoglobin 33.6 pg (26.0-34.0); Monocytes # (Auto) 0.3 K/mcL (0.1-0.9); Monocytes % (Auto) 8.8 % (1.0-12.0); Platelet Count 136 K/mcL (140-440); RBC 3.31 M/mcL (4.50-5.90); Red Cell Distribution Width 14.2 % (11.5-14.5)
[2017-05-09 06:48] LABS: ALT/SGPT 38 U/l (0-40); Albumin 2.7 gm/dL (3.2-5.2); Albumin/Globulin Ratio 0.9 (1.0-2.3); Alkaline Phosphatase 59 U/L (39-117); Bilirubin,Direct 0.4 mg/dL (0.0-0.3); Blood Urea Nitrogen 26 mg/dl (8-23); Gamma Glutamyl Transpeptidase 74 U/L (8-61); Uric Acid 5.2 mg/dL (2.5-8.0)
[2017-05-09] MEDS: INSULIN LISPRO 1 UNIT/0.01 ML UNIT SQ SCH ×4 (07:16→20:48)
[2017-05-09] MEDS: THIAMINE 100 MG in 0.9 % SODIUM CHLORIDE 50 ML IV SCH (08:24)
[2017-05-09] MEDS: MULTIVIT,THER IRON,CA,FA & MIN 1 TABLET PO SCH (08:24)
[2017-05-09] MEDS: FOLIC ACID 1 MG TABLET PO SCH (08:24)
[2017-05-09] MEDS: HEPARIN 5,000 UNIT/ML VIAL SQ SCH ×2 (08:24→20:47)
[2017-05-09] MEDS: LISINOPRIL 5 MG TABLET PO SCH (08:25)
[2017-05-09] MEDS: ASPIRIN 81 MG TAB.CHEW PO SCH (08:25)
[2017-05-09] MEDS: FENOFIBRATE 43 MG CAPSULE PO SCH (08:26)
[2017-05-09] MEDS: GABAPENTIN 300 MG CAPSULE PO SCH ×2 (08:26→20:47)
[2017-05-09] MEDS: ATORVASTATIN 20 MG TABLET PO SCH (08:26)
[2017-05-09] MEDS: DOCUSATE SODIUM 100 MG CAPSULE PO SCH ×2 (08:28→20:46)
[2017-05-09] MEDS ORDERED: FOLIC ACID 400 MCG PO SCH (09:00)
[2017-05-09] MEDS: CYANOCOBALAMIN (VITAMIN B-12) 500 MCG TABLET PO SCH (10:13)
[2017-05-09] MEDS: HYDROmorphone 2 MG TABLET PO PRN ×2 (13:38→17:58)
[2017-05-09] MEDS: CYCLOBENZAPRINE 10 MG TABLET PO PRN (17:58)
--- NOTE | 2017-05-09 18:40 | Internal Med Progress Note ---
Medical - PN: Subj Patient information: Note initiated : 05/09/17 at 6:38 pm Service Date, if different from initiated Date: [] Patient: Ramo Álvarez 67 y/o M admitted on 05/06/17 for Fall/T8 Vertebral Fracture . Chief Complaint: [] Interval history: Mr. Álvarez is a 67 year old Male history of heavy alcohol use, chronic kidney disease, diabetes, lives by himself. He presents to the emergency room today brought in by his son after a fall. The patient notes that he fell down on Wednesday, in his bathroom. It was about to fall, no injury to his head, he has been having some back pain in the lower back since then and has been bedridden. He has not been eating and drinking very much for the last 3 days. He notes that he is trying to avoid drinking fluids so that he does not have to use the bathroom. Last night he fell down again this time from a chair, and landed on his buttocks. The patient's pain worsened. Given that he is unable to take care of himself, and is in significant pain. He was brought to the emergency room for further evaluation. The patient son was pres obtained from the patient. The patient denies any headache, admits to being dizzy when he stands up, which he attributes to drop in blood pressure. The patient denies any visual or hearing complaints, denies any swallowing difficulties, no chest pain, does have some chest congestion number denies any shortness of breath at rest but does feel short of breath when he tries to move around, which she attributes to pain. The patient denies any nausea presently but did have some nausea and vomiting on Wednesday. The patient denies any constipation or diarrhea, has not been able to pass urine very well because he is trying to limit his fluid intake. The patient has back pain, some pain in the knees as he was trying to crawl on them. Denies any acute skin rashes, admits to being depressed. Denies suicidal ideations. In the emergency room, the patient's vitals were stable, his chest x-ray was negative except for possible T8 fracture, CT of the spine was done which shows an acute fracture of the T8 spine, disc collapse of T7, T8, moderate. Labs show acute renal failure. Patient has mild rise in troponins of 0.04. EKG does not show any acute ST segment changes. May 07 patient seen and examined, no acute overnight events, patient does not have pain if she is not moving her lower has back pain when he tries to move. Seen by orthopedics, MRI done, L2 fracture noted, otherwise surgery according to orthopedic note patient also think about it. He has a brace at home which she plans to bring. Okay for weightbearing according to Ortho on ciwa, not in DT May 08 patient seen and examined events, or to consult appreciated. Patient is still in bed. Back pain severe when he tries to ambulate, trying to work with physical therapy. Renal function back to normal, urine still dark, CK level is back to normal. Continue IV fluids at 75 cc an hour Plan of care reviewed with the patient, he will likely need placement at [facility] if he is unable to am living by himself by Wednesday. May 09 Patient seen and examined, no acute overnight events, patient's pain is better he is trying to ambulate a little morestill has pain. Most of the days in the bed. Patient's labs show continued improvement, he is making good urine output urine is still dark. Patient is on IV fluids, not in alcohol withdrawal or DTs. Ddark tinge of the urine could be attributed to IV multivitamin IV thiamine given Patient otherwise denies any chest pain or shortness of breath no headache or dizziness Pertinent ROS: Denies headache, dizziness Denies chest pain, palpitations Denies cough or shortness of breath Denies abdominal pain, nausea or vomiting. - Constitutional Vitals: Vital Signs Temp Pulse Resp BP Pulse Ox 98.6 F 94 H 16 151/97 91 05/09/17 15:43 05/09/17 04:00 05/09/17 15:43 05/09/17 15:43 05/09/17 15:43 Period Temp Pulse Resp BP Sys/Bella Pulse Ox Last 24 Hr 97.6 F-98.8 F 93-95 16-22 114-157/74-99 90-93 Intake and Output 05/09/17 05/09/17 05/09/17 05:59 13:59 21:59 Intake Total 954 / 954 251 / 251 450 / 450 Output Total 950 / 950 1675 / 1675 Balance 251 / 251 -1225 / -1225 Intake & Output: Intake & Output 05/09/17 05/09/17 05/09/17 05:59 13:59 21:59 Intake Total 954 / 954 251 / 251 450 / 450 Output Total 950 / 950 1675 / 1675 Balance / 251 -1225 / -1225 Intake: IV 904 / 904 51 / 51 Sodium Chloride 0.9% 1,000 ml @ 904 / 904 75 mls/hr IV .[id number] Rx#: [id number] Vitamin B1 100 mg In Sodium 51 / 51 Chloride 0.9% 50 ml @ 50 mls/hr IV DAILY [facility] Rx#:[id number] Oral 50 / 50 200 / 200 450 / 450 Output: Urine Catheter Amount 950 / 950 1675 / 1675 Other: Meal Breakfast Percent of Meal Consumed 100% Stool Size Moderate Stool Color Brown # Bowel Movements 1 Exam: Constitutional; Afebrile, cooperative, alert, not in distress. Eyes- No icterus, , No periorbital swelling Ears- Ext ear normal, hearing normal to conversation. Neck- Midline trachea, supple Respiratory system: Air Entry equal on both sides, mild basilar crackles improves with deep inspiration CVS- Rate rhythm regular, S1,S2 heard, no gallop, no rub. 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 Medical - PN: Obj Da - Labs CBC & Chem 7: 05/09/17 04:50 05/09/17 04:50 Labs: Abnormal Lab Results 05/09/17 05/09/17 05/08/17 04:50 04:50 04:30 WBC 3.8 L RBC 3.31 L Hgb 11.1 L Hct 32.8 L MCV RDW Plt Count 136 L Gran % Lymph % (Auto) Lymph # (Auto) 0.7 L Carbon Dioxide 21 L Anion Gap BUN 26 H Creatinine Glucose 108 H Uric Acid Calcium 8.5 L Direct Bilirubin 0.4 H GGT 74 H AST 67 H Lactate Dehydrogenase Total Creatine Kinase 23 L Total Protein 5.7 L Albumin 2.7 L Albumin/Globulin Ratio 0.9 L 05/08/17 05/08/17 05/07/17 04:30 04:30 04:45 WBC RBC 3.67 L Hgb 12.3 L Hct 37.1 L MCV 100.9 H RDW 14.6 H Plt Count Gran % Lymph % (Auto) 12.7 L Lymph # (Auto) 0.8 L Carbon Dioxide 20 L Anion Gap 18.0 H BUN 40 H 60 H Creatinine 1.4 H Glucose Uric Acid 8.7 H Calcium Direct Bilirubin 0.4 H GGT AST 43 H 50 H Lactate Dehydrogenase 298 H Total Creatine Kinase Total Protein Albumin 3.0 L 2.9 L Albumin/Globulin Ratio 0.8 L 05/07/17 04:45 WBC RBC 3.82 L Hgb 12.8 L Hct 37.6 L MCV RDW Plt Count Gran % 79.8 H Lymph % (Auto) 11.3 L Lymph # (Auto) 0.8 L Carbon Dioxide Anion Gap BUN Creatinine Glucose Uric Acid Calcium Direct Bilirubin GGT AST Lactate Dehydrogenase Total Creatine Kinase Total Protein Albumin Albumin/Globulin Ratio Meds: Medications Acetaminophen (Tylenol) 500 mg PO Q4-6HP PRN PRN Reason: Pain Albuterol Sulfate (Ventolin) 2.5 mg NEB Q2HP PRN PRN Reason: Shortness Of Breath Aspirin (Aspirin) 81 mg PO DAILY [facility] Last Admin: 05/09/17 08:25 Dose: 81 mg Atorvastatin Calcium (Lipitor) 20 mg PO QDAY [facility] Last Admin: 05/09/17 08:26 Dose: 20 mg Clonidine HCl (Catapres) 0.1 mg PO Q4HP PRN PRN Reason: Alcohol Withdrawal Cyanocobalamin (Vitamin B-12) 1,000 mcg PO DAILY [facility] Last Admin: 05/09/17 10:13 Dose: 1,000 mcg Cyclobenzaprine HCl (Flexeril) 10 mg PO BIDP PRN PRN Reason: Pain Last Admin: 05/09/17 17:58 Dose: 10 mg Dextrose (Dextrose 50%) 0 ml IV UD PRN PRN Reason: Hypoglycemia Diagnostic Test (Pha) (Accu-Chek) 1 each FS ACHS [facility] Last Admin: 05/09/17 17:48 Dose: 1 each Docusate Sodium (Colace) 100 mg PO BID [facility] Last Admin: 05/09/17 08:28 Dose: 100 mg Fenofibrate (Antara) 43 mg PO DAILY [facility] Last Admin: 05/09/17 08:26 Dose: 43 mg Folic Acid (Folic Acid) 1 mg PO DAILY [facility] Last Admin: 05/09/17 08:24 Dose: 1 mg Gabapentin (Neurontin) 300 mg PO BID [facility] Last Admin: 05/09/17 08:26 Dose: 300 mg Glucose (Insta-Glucose) 15 gm PO PRN PRN PRN Reason: Hypoglycemia Heparin Sodium (Porcine) (Heparin) 5,000 unit SQ Q12 [facility] Last Admin: 05/09/17 08:24 Dose: 5,000 unit Hydromorphone HCl (Dilaudid) 0.5 mg IV Q2HP PRN PRN Reason: PAIN LEVEL > 6 Last Admin: 05/07/17 08:14 Dose: 0.5 mg Hydromorphone HCl (Dilaudid) 2 mg PO Q4HP PRN PRN Reason: Pain Last Admin: 05/09/17 17:58 Dose: 2 mg Thiamine HCl 100 mg/ Sodium (Chloride) 51 mls @ 50 mls/hr IV DAILY [facility] Last Infusion: 05/09/17 09:24 Dose: Infused Sodium Chloride (Sodium Chloride 0.9%) 1,000 mls @ 75 mls/hr IV .[id number] [facility] Stop: 05/10/17 05:24 Last Admin: 05/09/17 17:47 Dose: Not Given Insulin Human Lispro (Humalog) 0 unit SQ ACHS [facility] PRN Reason: Protocol Last Admin: 05/09/17 17:48 Dose: Not Given Iron Carb/Multivit/[facility]/Folic Acid (Multivitamin W/Minerals) 1 tab PO DAILY [facility] Last Admin: 05/09/17 08:24 Dose: 1 tab Lisinopril (Zestril) 2.5 mg PO DAILY [facility] Last Admin: 05/09/17 08:25 Dose: 2.5 mg Lorazepam (Ativan) 0 mg IV Q4HP PRN; Protocol PRN Reason: Alcohol Withdrawal Magnesium Hydroxide (Milk Of Magnesia) 30 ml PO DAILYP PRN PRN Reason: Constipation Naloxone HCl (Narcan) 0.1 mg IV Q2MIN PRN PRN Reason: Opiate Reversal Ondansetron HCl (Zofran) 4 mg IV Q6HP PRN PRN Reason: Nausea And Vomiting Sodium Chloride (Saline Flush) 10 ml IV Q8 [facility] Last Admin: 05/09/17 15:20 Dose: Not Given Sodium Chloride (Saline Flush) 10 ml IV Q8 [facility] Last Admin: 05/09/17 15:20 Dose: Not Given Medical - PN: A/P - Time Spent With Patient Total time spent is greater than 50% in coordination of care (as documented) at patient's floor/unit and/or counseling patient: - Narrative A/P Narrative: A/P Acute Kidney injury on CKD: Ibarra in place, creat improving, today creatinine is 1.1 back to baseline Vertebral fracture: pain managmenet, TSLO brace, follow up with ortho as outpatient. resume gabapentin, resume cyclobenzapril,pain control better today Back pain: Due to fracture, dilaudid for now, IV and oral, tolerating well. Alcohol abuse: Discussed with him need to quit, ciwa protocol, IV banana bag, thiamine mv folate, no DT so far Depression: denies SI or HI, will consider starting anti depressant if patient agrees Diabetes: Hold oral meds, Insulin SSI for now. Hypertension: BP stable, monitor for now, resume kala inhibitor. HLD resume statin and fenofibrate. DVT hep sq Diet Diabetic Full code anticipate discharged tomorrow to rehabilitation facility Medical - PN: Qual - VTE Deep Vein Thrombosis/Pulmonary Embolism Present on Admission: No
[2017-05-10] MEDS: 0.9 % SODIUM CHLORIDE 10 ML SYRINGE IV SCH ×2 (04:44)
[2017-05-10 06:30] LABS: Basophils # (Auto) 0 K/mcL (0.0-0.3); Basophils % (Auto) 0.1 % (0.0-2.0); Eosinophils # (Auto) 0.1 K/mcL (0.0-0.7); Eosinophils % (Auto) 4.2 % (0.0-7.0); Granulocytes % (Auto) 66.6 % (38.0-78.0); Lymphocytes # (Auto) 0.6 K/mcL (1.5-4.8); Lymphocytes % (Auto) 18.2 % (15.5-49.0); Mean Cell Volume 100.1 fL (80.0-100.0); Mean Corpuscular HGB Conc 33.9 g/dL (31.0-36.0); Monocytes # (Auto) 0.4 K/mcL (0.1-0.9); Monocytes % (Auto) 10.9 % (1.0-12.0); Platelet Count 132 K/mcL (140-440); RBC 3.28 M/mcL (4.50-5.90); Red Cell Distribution Width 14.1 % (11.5-14.5)
[2017-05-10 06:44] LABS: ALT/SGPT 49 U/l (0-40); Albumin 2.6 gm/dL (3.2-5.2); Albumin/Globulin Ratio 0.8 (1.0-2.3); Alkaline Phosphatase 65 U/L (39-117); Bilirubin,Direct 0.3 mg/dL (0.0-0.3); Blood Urea Nitrogen 18 mg/dl (8-23); Gamma Glutamyl Transpeptidase 87 U/L (8-61); Uric Acid 4.7 mg/dL (2.5-8.0)
[2017-05-10] MEDS: FENOFIBRATE 43 MG CAPSULE PO SCH (08:55)
[2017-05-10] MEDS: GABAPENTIN 300 MG CAPSULE PO SCH (08:55)
[2017-05-10] MEDS: MULTIVIT,THER IRON,CA,FA & MIN 1 TABLET PO SCH (08:55)
[2017-05-10] MEDS: CYANOCOBALAMIN (VITAMIN B-12) 500 MCG TABLET PO SCH (08:55)
[2017-05-10] MEDS: ATORVASTATIN 20 MG TABLET PO SCH (08:55)
[2017-05-10] MEDS: FOLIC ACID 1 MG TABLET PO SCH (08:55)
[2017-05-10] MEDS: INSULIN LISPRO 1 UNIT/0.01 ML UNIT SQ SCH ×2 (08:56→16:22)
[2017-05-10] MEDS: ASPIRIN 81 MG TAB.CHEW PO SCH (08:56)
[2017-05-10] MEDS: DOCUSATE SODIUM 100 MG CAPSULE PO SCH (08:56)
[2017-05-10] MEDS: THIAMINE 100 MG in 0.9 % SODIUM CHLORIDE 50 ML IV SCH (08:56)
[2017-05-10] MEDS: LISINOPRIL 5 MG TABLET PO SCH (08:56)
[2017-05-10] MEDS: HEPARIN 5,000 UNIT/ML VIAL SQ SCH (08:57)
[2017-05-10] MEDS ORDERED: MAGNESIUM SULFATE 2 GM/50 ML BAG IV ONE (09:08)
[2017-05-10] MEDS: HYDROmorphone 2 MG TABLET PO PRN (10:44)
[2017-05-10] MEDS: CYCLOBENZAPRINE 10 MG TABLET PO PRN (10:45)
--- NOTE | 2017-05-10 13:43 | Discharge Summary ---
Medical - DS: Prov Patient information: Note initiated : 05/10/17 at 1:39 pm Service Date, if different from initiated Date: [] Patient: Ramo Álvarez 67 y/o M admitted on 05/06/17 for Fall/T8 Vertebral Fracture . Chief Complaint: [] Date of admission: 05/06/17 13:54 Discharge date: 05/10/17 Primary care physician: Vianey Wolfe Admitting clinician: Júnior Palm Consults: 05/06/17 12:01 Consult to Physician [CONS] Stat Comment: Consulting Provider: Júnior Palm Reason For Exam: Physician to Consult 05/06/17 14:11 Consult to Physician [CONS] Stat Comment: Consulting Provider: Cooper Hector Reason For Exam: Physician to Consult 05/10/17 09:22 Consult to Physician [CONS] Routine Comment: Consulting Provider: [facility] Reason For Exam: Physician to Consult Discharging clinician: Júnior Palm Medical - DS: Meds - Discharge Medications Prescriptions: HYDROmorphone HCL [Dilaudid] 2 mg PO Q4HP PRN #40 tab PRN Reason: Back pain. Active and Home Medications: Home Medications aspirin 81 mg tablet,delayed release 81 mg PO QDAY tab 11/28/14 [History Confirmed 05/06/17 Last Taken 05/05/17 08:00] atorvastatin 20 mg tablet 20 mg PO QDAY tab 11/28/14 [History Confirmed Last Taken 05/05/17 20:00] cyanocobalamin (vit B-12) 1,000 mcg tablet 1,000 mcg PO QDAY tab 11/28/14 [ History Confirmed 05/06/17 Last Taken 05/05/17 08:00] glipizide 5 mg tablet 5 mg PO QAM tab 11/28/14 [History Confirmed 05/06/17 Last Taken 05/05/17 08:00] sildenafil 100 mg tablet 100 mg PO ONCE tab 11/28/14 [History Confirmed Last Taken 03/07/17] folic acid 400 mcg tablet 400 mcg PO QDAY 03/21/15 [History Confirmed 05/06/17 Last Taken 05/05/17 08:00] omega-3 fatty acids 1,000 mg capsule 2,000 mg PO BID cap 03/21/15 [History Confirmed 05/06/17 Last Taken 05/05/17 20:00] fenofibrate nanocrystallized 48 mg tablet 48 mg PO QDAY #90 tab 08/08/15 [Rx Confirmed 05/06/17 Last Taken 05/05/17 20:00] gabapentin 300 mg capsule 300 mg PO BID #180 cap 10/26/16 [Rx Confirmed Last Taken 05/05/17 20:00] benazepril 5 mg tablet 2.5 mg PO QDAY #45 tab 01/14/17 [Rx Confirmed 05/06/17 Last Taken 05/05/17 08:00] Acetaminophen [Tylenol] 500 mg PO Q4-6HP PRN 05/06/17 [History Confirmed Last Taken 05/05/17 13:30] Cyclobenzaprine [Flexeril] 10 mg PO BIDP PRN 05/06/17 [History Confirmed Last Taken 05/05/17 13:30] Lansoprazole [Prevacid] 30 mg PO Q48 PRN 05/06/17 [History Confirmed 05/06/17 Last Taken 04/06/17] Medical - DS: Hosp Hospital course: Mr. Álvarez is a 67 year old Male history of heavy alcohol use, chronic kidney disease, diabetes, lives by himself. He presented to the emergency room after a fall. The patient notes that he fell down last Wednesday, in his bathroom. It was about to fall, no injury to his head, he has been having some back pain in the lower back since then and has been bedridden. He has not been eating and drinking very much for the last 3 days. He notes that he is trying to avoid drinking fluids so that he does not have to use the bathroom. Last night he fell down again this time from a chair, and landed on his buttocks. The patient 's pain worsened. Given that he is unable to take care of himself, and is in significant pain. He was brought to the emergency room for further evaluation. The patient son was pres obtained from the patient. The patient denies any headache, admits to being dizzy when he stands up, which he attributes to drop in blood pressure. The patient denies any visual or hearing complaints, denies any swallowing difficulties, no chest pain, does have some chest congestion number denies any shortness of breath at rest but does feel short of breath when he tries to move around, which she attributes to pain. The patient denies any nausea presently but did have some nausea and vomiting on Wednesday. The patient denies any constipation or diarrhea, has not been able to pass urine very well because he is trying to limit his fluid intake. The patient has back pain, some pain in the knees as he was trying to crawl on them. Denies any acute skin rashes, admits to being depressed. Denies suicidal ideations. In the emergency room, the patient's vitals were stable, his chest x-ray was negative except for possible T8 fracture, CT of the spine was done which shows an acute fracture of the T8 spine, disc collapse of T7, T8, moderate. Labs show acute renal failure. Patient has mild rise in troponins of 0.04. EKG does not show any acute ST segment changes. Vertebral Fracture: patient has significant pain on ambulation due to pain in the back. He was seen by orthopedics, advised that he may need vertebroplasty. Patient was to think about this at this point in time. He was to see if he happened help. The patient will be discharged to rehabilitation facility with Dilaudid for pain management, he will follow up with orthopedics as an outpatient. The patient had an MRI of the spine done which did not show any acute cord compression. Acute kidney injury-showed elevated creatinine on presentation, this was likely due to his poor oral intake. This is bonded well to IV fluids at the time of discharge his creatinine is back to normal. Alcohol intake-patient was monitored, given IV thiamine for possible withdrawal , did not go into alcohol withdrawal or delirium tremors. Alcohol cessation reinforced Discharge diagnosis: Vertebral Fracture, back pain,. - Time Spent with Patient Total time spent providing and/or coordinating discharge services: Greater than 30 minutes Medical - DS: Exam - Constitutional Vitals: Vital Signs Temp Pulse Resp BP Pulse Ox 05/10/17 12:00 98.6 F 18 136/91 91 05/10/17 06:27 98.6 F 20 152/77 91 05/10/17 04:00 98.9 F 92 H 16 144/87 91 05/09/17 23:14 97.8 F 89 22 132/86 90 05/09/17 20:00 98.3 F 91 H 16 128/87 91 05/09/17 15:43 98.6 F 16 151/97 91 05/09/17 15:30 97.6 F 18 143/91 93 Intake and Output 05/09/17 05/10/17 05/10/17 21:59 05:59 13:59 Intake Total 1450 / 1450 0 / 0 291 / 291 Output Total 1675 / 1675 800 / 800 275 / 275 Balance -225 / -225 -800 / -800 Intake: IV 1000 / 1000 51 / 51 Sodium Chloride 0.9% 1,000 ml @ 1000 / 1000 75 mls/hr IV .[id number] [facility] Rx#: [id number] Vitamin B1 100 mg In Sodium 51 / 51 Chloride 0.9% 50 ml @ 50 mls/hr IV DAILY [facility] Rx#:[id number] Oral 450 / 450 0 / 0 240 / 240 Output: Urine Catheter Amount 1675 / 1675 800 / 800 Void Amount 275 / 275 Other: Stool Size Moderate Stool Color Brown # Voids 1 # Bowel Movements 1 Weight 259 lb Additional comments: Constitutional; Afebrile, cooperative, alert, not in distress. Eyes- No icterus, , No periorbital swelling Ears- Ext ear normal, hearing normal to conversation. Neck- Midline trachea, supple Respiratory system: Air Entry equal on both sides, No crackles or wheezing, no rhonchi. CVS- Rate rhythm regular, S1,S2 heard, no gallop, no rub. Abdomen- Soft nontender abdomen, no organomegaly, no tenderness, no guarding or rigidity, [employer]ING [employer]- AOOx3, moving all extremities, no gross focal deficit noted. Medical - DS: Data Procedures and tests throughout hospitalization: chest x ray IMPRESSION: Possible T8 fracture. Thoracic spine x-rays are recommended. CT T spine Impression: Moderate wedge compression fracture at T8 and milder compression fracture at T12. These are new fractures. Impression fracture involving the superior endplate of L2. This may be old. Medium-sized midline disc herniation at T7-8 Dr. Mckeon was called with the results ABdomen and Pelvis CT IMPRESSION: New compression fractures at T8 and T12. There is no pelvic fracture or intra-abdominal hematoma Mild fatty infiltration of the liver MR spine Lumbar IMPRESSION: Acute biconcave compression fracture at T12 with mild retropulsion of bone into the central canal, causing mild central canal stenosis Subacute to chronic compression fracture involving superior plate of L2 Posterior bulging discs at L1-2, L3-4 and L4-5. No disc herniation is present Ortho recs acute fracture T12, L3 will continue to mobilize and see how pain tolerated will also brace. may consider Kyphoplasty as outpatient Labs on day of discharge: Labs from last 24 hours 05/10/17 05/10/17 05:20 05:20 WBC 3.5 L RBC 3.28 L Hgb 11.1 L Hct 32.8 L MCV 100.1 H MCH 34.0 MCHC 33.9 RDW 14.1 Plt Count 132 L MPV 8.3 Gran % 66.6 Lymph % (Auto) 18.2 [place] % (Auto) 10.9 Eos % (Auto) 4.2 Baso % (Auto) 0.1 Gran # 2.3 Lymph # (Auto) 0.6 L [place] # (Auto) 0.4 Eos # (Auto) 0.1 Baso # (Auto) 0 Sodium 137 Potassium 4.2 Chloride 101 Carbon Dioxide 24 Anion Gap 12.0 BUN 18 Creatinine 0.7 GFR Calculation 99 Glucose 108 H Uric Acid 4.7 Calcium 8.7 Phosphorus 2.7 Magnesium 1.6 Total Bilirubin 0.8 Direct Bilirubin 0.3 GGT 87 H AST 70 H ALT 49 H Alkaline Phosphatase 65 Lactate Dehydrogenase 157 Total Protein 5.7 L Albumin 2.6 L Globulin 3.1 Albumin/Globulin Ratio 0.8 L Triglycerides 98 Medical - DS: A/P - Patient/Caregiver Discharge Instructions Activity: as per physical therapy, increase activity as tolerated Diet: Regular Diet Additional Instructions: Patient with Vertebral Fracture, Advise TSLO brace Follow up with Dr Hector in 1-2 weeks Follow up with PCP in 2 weeks Go to the ER if worsening symptoms, chest pain, shortness of breath and or fever. OT/PT at Rehab facility. consider using Po dilaudid before initiation rehab. - Follow up Plan Follow up with: Vianey Wolfe ARNP [Primary Care Provider] - Cooper Hector MD [Physician] - Disposition: Xfer SNF Prognosis: Fair Rehab Potential: Fair I certify that the patient requires SNF services: Yes Overall status at discharge: patient is progressing back to baseline Medical - DS: Qual - VTE Deep Vein Thrombosis/Pulmonary Embolism Present on Admission: No
[2017-05-11] MEDS ORDERED: MAGNESIUM OXIDE 400 MG TABLET PO SCH (09:00)
== END 2017-05-10 14:33 | DRG 552 ==
LOC: ED 07:32 → MEDSUR 13:54
PROVIDERS: ADMIT Internal Medicine; ATTEND Internal Medicine

== ENCOUNTER 2019-10-09 13:29 | Inpatient (IN) ==
[2019-10-09] MEDS ORDERED: LACTATED RINGERS 1,000 ML IV ONE (14:20)
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
[2019-10-09] MEDS ORDERED: GABAPENTIN 300 MG CAPSULE PO ONE (14:58)
[2019-10-09] MEDS ORDERED: HYDROmorphone 0.5 MG/0.5 ML SYRINGE IV PRN (14:59)
[2019-10-09 15:12] LABS: Basophils # (Auto) 0.01 K/mcL (0.00-0.30); Basophils % (Auto) 0.3 % (0.0-2.0); Eosinophils # (Auto) 0 K/mcL (0.00-0.70); Eosinophils % (Auto) 0 % (0.0-7.0); Granulocytes % (Auto) 73.2 % (38.0-78.0); Hematocrit 39.5 % (40.1-51.0); Hemoglobin 13.1 g/dL (13.7-17.5); Lymphocytes % (Auto) 19.1 % (15.5-49.0); Mean Corpuscular HGB Conc 33.2 g/dL (31.0-36.0); Mean Platelet Volume 9.5 fL (7.4-10.4); Monocytes # (Auto) 0.27 K/mcL (0.10-0.90); Monocytes % (Auto) 7.4 % (1.0-12.0); Platelet Count 94 K/mcL (140-440); RBC 3.99 M/mcL (4.63-6.08); Red Cell Distribution Width 13.3 % (11.5-14.5); WBC 3.7 K/mcL (4.50-11.00)
[2019-10-09 15:32] LABS: Creatine Kinase MB 4.9 ng/ml (0-4.9)
[2019-10-09 15:33] LABS: Creatine Kinase MB 4.9 ng/ml (0-4.9); Myoglobin 209 ng/ml (28-72)
[2019-10-09 15:46] LABS: ALT/SGPT 19 U/l (0-40); AST/SGOT 58 U/l (0-37); Albumin 3.6 gm/dL (3.2-5.2); Albumin/Globulin Ratio 1.3 (1.0-2.3); Alkaline Phosphatase 62 U/L (39-117); Bilirubin,Total 1.9 mg/dL (0.0-1.0); Blood Urea Nitrogen 19 mg/dl (8-23); Calcium 8.7 mg/dl (8.6-10.4); Carbon Dioxide 23 mmol/L (22-30); Chloride 103 mmol/L (96-108); Creatine Kinase 197 IU/L (24-195); Globulin 2.8 gm/dL (2.2-3.7); Glomerular Filtration Rate 69; Glucose 129 mg/dL (70-105)
[2019-10-09 16:00] LABS: Appearance,Urine CLEAR; Bacteria,Urine 0 /hpf (0); Bilirubin,Urine NEG (NEG); Color,Urine AMBER; Culture Indicated,Urine NO; Glucose,Urine (UA) NEGATIVE (NEG); Ketones,Urine 20 mg/dL (NEG); Leukocyte Esterase,Urine NEG /uL (NEG); Mucus,Urine FEW /hpf (0); Nitrate,Urine NEG (NEG); Protein,Urine 100 mg/dL (NEG); Specific Gravity,Urine 1.025 (1.000-1.035); Urine Blood NEG mg/dL (<0.03); Urine Hyaline Cast 3 /lpf (0-2); Urine RBC 1 /hpf (0-1); Urine Squamous Epithelial Cell 1 /hpf (0-4); Urine WBC 6 /hpf (0-4)
[2019-10-09 16:28] LABS: Alcohol, Blood < 10.0 mg/dL (<10); Alcohol,Blood < 0.010 gm/dl (<0.010)
[2019-10-09] MEDS ORDERED: LACTATED RINGERS 1,000 ML IV SCH (18:15)
[2019-10-09] MEDS ORDERED: ONDANSETRON 4 MG/2 ML VIAL IV PRN (19:53)
[2019-10-09] MEDS ORDERED: DEXTROSE 31 GM ORAL.SUSP PO PRN (19:59)
[2019-10-09] MEDS ORDERED: DEXTROSE 50% 50 ML VIAL IV PRN (19:59)
[2019-10-09] MEDS ORDERED: 0.9 % SODIUM CHLORIDE 1,000 ML IV SCH (20:00)
[2019-10-09] MEDS ORDERED: DIAZEPAM 10 MG TABLET PO PRN (20:03)
[2019-10-09] MEDS ORDERED: LORazepam 2 MG/ML VIAL IV PRN (20:08)
--- NOTE | 2019-10-09 20:27 | Internal Med History&Physical ---
HPI History of Present Illness Patient information: Note initiated : 10/09/19 at 8:14 pm Service Date, if different from initiated Date: [] Patient: Ramo Álvarez 69 y/o M admitted on for fall, burn to back. Chief Complaint: [] History of present illness: Mr. Álvarez is a 69 year old M with a hx of diabetes type 2, alcohol abuser, and hypertension who presented to the ER due to a month chemical fall. Patient is a poor historian. Patient fell 2 days ago due to weak legs from diabetic neuropathy. He did not lose consciousness and did not have injury to his head. He admits he drinks alcohol every day for many years and the last time was a 4 days ago. When I saw this patient in the ER, he denied headache, dizziness, nausea, vomiting, abdominal pain, or dysuria. He told me that he lives alone. Review of Systems All systems: reviewed and no additional remarkable complaints except as stated PFSH PFS Medical History Benign neoplasm of skin (Chronic) Chronic kidney disease, stage II (mild) (Chronic) Chronic kidney disease, stage III (moderate) (Chronic) CKD stage 3 secondary to diabetes (Chronic) DM (diabetes mellitus) type II controlled, 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) ED (erectile dysfunction) of non-organic origin (Chronic) Edema (Chronic) Essential hypertension (Chronic) GERD (gastroesophageal reflux disease) (Chronic) Hemangioma (Chronic) Hyperlipidemia (Chronic) Hypertensive renal disease (Chronic) Lumbago (Chronic) Morbid obesity (Chronic) Osteoarthritis of knees, bilateral (Chronic) Pure hyperglyceridemia (Chronic) Renal disease (Chronic) Surgical History History of carpal tunnel release of both wrists (Chronic) 1979 Family History father History of coronary artery bypass surgery, Onset Age: 81 x2 maternal side of family Malignant neoplasm of colon brother Type 2 diabetes mellitus maternal side family Cerebrovascular accident (CVA) Social History marital status: occupational status: employed occupation: [employer] smoking status: Former smoker alcohol intake frequency: 2+ drinks per day substance use type: does not use MEDS/ALLERGIES Home Medications and Allergies Home Medications Medication Instructions Recorded Confirmed Type aspirin 81 mg tablet,delayed 81 mg PO QDAY tab 11/28/14 02/27/19 History release cyanocobalamin (vitamin B-12) 1,000 mcg PO QDAY tab 11/28/14 02/27/19 History 1,000 mcg tablet omega-3 fatty acids 1,000 mg 2,000 mg PO BID cap 03/21/15 02/27/19 History capsule acetaminophen 500 mg PO Q4-6HP PRN 05/06/17 02/27/19 History hydromorphone 2 mg PO Q4HP PRN #40 tab 05/10/17 02/27/19 Rx cholecalciferol (vitamin D3) 1,250 50,000 unit PO QWEEK 12/13/17 02/27/19 History mcg (50,000 unit) capsule folic acid 400 mcg tablet 400 mcg PO QDAY tab 12/13/17 02/27/19 History gabapentin 300 mg capsule 300 mg PO QID cap 12/13/17 02/27/19 History lansoprazole 30 mg capsule,delayed 30 mg PO Q48 PRN 12/13/17 02/27/19 History release magnesium oxide 400 mg PO BID cap 12/13/17 02/27/19 History sildenafil 100 mg tablet 100 mg PO QDAY PRN tab 02/27/19 02/27/19 History Allergies Allergy/AdvReac Type Severity Reaction Status Date / Time oxycodone [From Percocet] Allergy Mild Hives/Itchi Verified 10/09/19 13:34 ng EXAM Constitutional Vitals: Temp Pulse Resp BP Pulse Ox 99.2 F H 109 H 20 160/116 96 10/09/19 13:30 10/09/19 19:46 10/09/19 19:46 10/09/19 19:46 10/09/19 19:46 Additional findings Additional findings: General - No acute distress Eyes - PERRLA, EOM intact ENT no rhinorrhea, no noticeable or palpable swelling, no redness or rash around throat or on face Neck supple, no JVD, no thyromegaly Respiratory: Lungs -clear, no wheezing or crackles. Cardiovascular - RRR no m/r/g, GI - Normal bowel sounds, no distended, soft. Extremeties - No edema, cyanosis or clubbing. fine tremor in both hands. Hemo/lymphatic/immune no lymphadenopathy Neurological Alert and oriented x 3, no focal neurological deficits. Psychiatry flat affect DATA Data Completed and Pending Labs on day of discharge: Labs from last 24 hours 10/09/19 10/09/19 10/09/19 15:01 14:24 14:24 WBC RBC Hgb Hct MCV MCH MCHC RDW Plt Count MPV Gran % Lymph % (Auto) [place] % (Auto) Eos % (Auto) Baso % (Auto) Gran # Lymph # (Auto) [place] # (Auto) Eos # (Auto) Baso # (Auto) VBG Lactic Acid 2.8 H Sodium Potassium Chloride Carbon Dioxide Anion Gap BUN Creatinine GFR Calculation Glucose Calcium Total Bilirubin AST ALT Alkaline Phosphatase Total Creatine Kinase CK-MB (CK-2) Myoglobin Troponin T Total Protein Albumin Globulin Albumin/Globulin Ratio Urine Color Holly Urine Appearance Clear Urine pH 5.0 Ur Specific [place] 1.025 Urine Protein 100 A Urine Glucose (UA) Negative Urine Ketones 20 A Urine Occult Blood Neg Urine Nitrate Neg Urine Bilirubin Neg Urine Urobilinogen 2.0 A Ur Leukocyte Esterase Neg Urine RBC 1 Urine WBC 6 H Ur Squamous Epith Cells 1 Urine Bacteria 0 Hyaline Casts 3 H Urine Mucus Few Ur Culture Indicated? No Ethyl Alcohol < 0.010 10/09/19 10/09/19 10/09/19 14:24 14:24 14:24 WBC RBC Hgb Hct MCV MCH MCHC RDW Plt Count MPV Gran % Lymph % (Auto) [place] % (Auto) Eos % (Auto) Baso % (Auto) Gran # Lymph # (Auto) [place] # (Auto) Eos # (Auto) Baso # (Auto) VBG Lactic Acid Sodium 145 Potassium 3.8 Chloride 103 Carbon Dioxide 23 Anion Gap 19.0 H BUN 19 Creatinine 1.1 GFR Calculation 69 Glucose 129 H Calcium 8.7 Total Bilirubin 1.9 H AST 58 H ALT 19 Alkaline Phosphatase 62 Total Creatine Kinase 197 H CK-MB (CK-2) 4.9 4.9 Myoglobin 209 H Troponin T < 0.01 Total Protein 6.4 Albumin 3.6 Globulin 2.8 Albumin/Globulin Ratio 1.3 Urine Color Urine Appearance Urine pH Ur Specific [place] Urine Protein Urine Glucose (UA) Urine Ketones Urine Occult Blood Urine Nitrate Urine Bilirubin Urine Urobilinogen Ur Leukocyte Esterase Urine RBC Urine WBC Ur Squamous Epith Cells Urine Bacteria Hyaline Casts Urine Mucus Ur Culture Indicated? Ethyl Alcohol 10/09/19 14:24 WBC 3.7 L RBC 3.99 L Hgb 13.1 L Hct 39.5 L MCV 99.0 MCH 32.8 MCHC 33.2 RDW 13.3 Plt Count 94 L MPV 9.5 Gran % 73.2 Lymph % (Auto) 19.1 [place] % (Auto) 7.4 Eos % (Auto) 0 Baso % (Auto) 0.3 Gran # 2.69 Lymph # (Auto) 0.70 L [place] # (Auto) 0.27 Eos # (Auto) 0 Baso # (Auto) 0.01 VBG Lactic Acid Sodium Potassium Chloride Carbon Dioxide Anion Gap BUN Creatinine GFR Calculation Glucose Calcium Total Bilirubin AST ALT Alkaline Phosphatase Total Creatine Kinase CK-MB (CK-2) Myoglobin Troponin T Total Protein Albumin Globulin Albumin/Globulin Ratio Urine Color Urine Appearance Urine pH Ur Specific [place] Urine Protein Urine Glucose (UA) Urine Ketones Urine Occult Blood Urine Nitrate Urine Bilirubin Urine Urobilinogen Ur Leukocyte Esterase Urine RBC Urine WBC Ur Squamous Epith Cells Urine Bacteria Hyaline Casts Urine Mucus Ur Culture Indicated? Ethyl Alcohol A/P Narrative A/P Narrative: 1. Mechanical fall I would not order CT of the head for him. Since no LOC and no focal neurologic deficits. EKG -no arrhythmia PT OT Advised him to stop drinking alcohol and control his blood sugar 2. Elevation of Ck IV fluid Repeat CK in the morning 3. Alcohol abuser/alcohol withdrawal [facility] protocol initiated Banana bag daily x3 US abdomen technical sales manager and social services consult 4. Dehydration In the ER, 2 L was given IV fluid 5. DM type 2 Insulin sliding scale Will adjust insulin based on blood sugar level 6. HTN With med rec 7. Thrombocytopenia Repeating in the morning 8. DVT prophylaxis: Lovenox 9. CODE STATUS: Table Tender Sludge Spent With Patient Time: Total time spent is greater than 50% in coordination of care (as documented) at patient's floor/unit and/or counseling patient:
[2019-10-09] MEDS ORDERED: LORazepam 2 MG/ML VIAL IV ONE (21:27)
[2019-10-09] MEDS: [UNRECOGNIZED DRUG - REMARK] IV SCH (23:16)
[2019-10-09] MEDS: 0.9 % SODIUM CHLORIDE 1,000 ML IV SCH (23:17)
[2019-10-09] MEDS: INSULIN LISPRO 1 UNIT/0.01 ML UNIT SQ SCH (23:17)
[2019-10-09] MEDS: THIAMINE 100 MG TABLET PO SCH (23:21)
[2019-10-09] MEDS: DOCUSATE SODIUM 100 MG CAPSULE PO SCH (23:22)
[2019-10-09] MEDS: MULTIVIT,THER IRON,CA,FA & MIN 1 TABLET PO SCH (23:22)
[2019-10-09] MEDS: VITAMIN B COMPLEX 1 CAPSULE PO SCH (23:22)
[2019-10-09] MEDS: 0.9 % SODIUM CHLORIDE 10 ML SYRINGE IV SCH (23:22)
[2019-10-09] MEDS: SENNOSIDES 1 TABLET PO SCH (23:22)
[2019-10-10] MEDS: 0.9 % SODIUM CHLORIDE 10 ML SYRINGE IV SCH ×3 (04:56→20:52)
[2019-10-10] MEDS: [UNRECOGNIZED DRUG - REMARK] IV SCH ×2 (04:56→16:28)
--- NOTE | 2019-10-10 04:57 | Ultrasound Report ---
CLINICAL INFORMATION: , Abdominal pain COMPARISON: None. FINDINGS: Liver is borderline enlarged and diffusely hyperechoic compatible with fatty change or other diffuse hepatocellular process. No focal hepatic lesion. The gallbladder and bile ducts are normal CBD is 5 mm. Both kidneys, spleen, aorta and pancreas are normal. No free fluid IMPRESSION: Borderline hepatomegaly with elevated echotexture compatible with fatty change or other diffuse hepatocellular process. Interpreted and Authenticated by: Justin Orozco 10/10/19
[2019-10-10 06:39] LABS: ALT/SGPT 18 U/l (0-40); AST/SGOT 70 U/l (0-37); Albumin/Globulin Ratio 1.1 (1.0-2.3); Alkaline Phosphatase 57 U/L (39-117); Bilirubin,Total 1.6 mg/dL (0.0-1.0); Blood Urea Nitrogen 16 mg/dl (8-23); Calcium 8.4 mg/dl (8.6-10.4); Carbon Dioxide 23 mmol/L (22-30); Chloride 100 mmol/L (96-108); Creatine Kinase 72 IU/L (24-195); Globulin 2.8 gm/dL (2.2-3.7); Glomerular Filtration Rate 92; Glucose 90 mg/dL (70-105); Phosphorous 2.4 mg/dL (2.7-4.5)
[2019-10-10 06:49] LABS: INR 1.1 (0.9-1.1); Prothrombin Time 14.3 sec (11.9-14.5)
[2019-10-10] MEDS ORDERED: LANSOPRAZOLE 30 MG PO PRN (07:02)
[2019-10-10 07:36] LABS: Basophils # (Auto) 0 K/mcL (0.00-0.30); Basophils % (Auto) 0 % (0.0-2.0); Eosinophils # (Auto) 0.01 K/mcL (0.00-0.70); Eosinophils % (Auto) 0.4 % (0.0-7.0); Granulocytes % (Auto) 46.2 % (38.0-78.0); Hematocrit 37.1 % (40.1-51.0); Hemoglobin 12.1 g/dL (13.7-17.5); Lymphocytes # (Auto) 1.22 K/mcL (1.50-4.80); Lymphocytes % (Auto) 45.9 % (15.5-49.0); Mean Cell Volume 100.3 fL (80.0-100.0); Mean Corpuscular HGB Conc 32.6 g/dL (31.0-36.0); Mean Platelet Volume 10.1 fL (7.4-10.4); Monocytes % (Auto) 7.5 % (1.0-12.0); Platelet Count 69 K/mcL (140-440); Red Cell Distribution Width 13.3 % (11.5-14.5); WBC 2.7 K/mcL (4.50-11.00)
[2019-10-10 07:45] LABS: Hemoglobin A1C 4.9 % HGB (4.0-6.0)
[2019-10-10] MEDS: CALCIUM ACETATE 667 MG CAPSULE PO SCH ×2 (08:46→12:42)
[2019-10-10] MEDS: PANTOPRAZOLE 40 MG TABLET PO SCH (08:46)
[2019-10-10] MEDS: INSULIN LISPRO 1 UNIT/0.01 ML UNIT SQ SCH ×4 (08:46→20:50)
[2019-10-10] MEDS: VITAMIN B COMPLEX 1 CAPSULE PO SCH ×2 (08:47→20:52)
[2019-10-10] MEDS: DOCUSATE SODIUM 100 MG CAPSULE PO SCH ×2 (08:47→20:51)
[2019-10-10] MEDS: GABAPENTIN 300 MG CAPSULE PO SCH ×4 (08:47→20:51)
[2019-10-10] MEDS: MULTIVIT,THER IRON,CA,FA & MIN 1 TABLET PO SCH ×2 (08:47→20:51)
[2019-10-10] MEDS: CYANOCOBALAMIN (VITAMIN B-12) 500 MCG TABLET PO SCH (08:47)
[2019-10-10] MEDS: FOLIC ACID 1 MG TABLET PO SCH (08:47)
[2019-10-10] MEDS: ASPIRIN 81 MG TAB.CHEW PO SCH (08:47)
[2019-10-10] MEDS: 0.9 % SODIUM CHLORIDE 1,000 ML IV SCH (08:48)
[2019-10-10] MEDS: THIAMINE 100 MG TABLET PO SCH ×3 (08:48→20:52)
[2019-10-10] MEDS: ENOXAPARIN 40 MG/0.4 ML SYRINGE SQ SCH (09:50)
--- NOTE | 2019-10-10 11:31 | Internal Med Progress Note ---
SUBJECTIVE Subjective Patient information: Note initiated : 10/10/19 at 11:27 am Service Date, if different from initiated Date: [] Patient: Ramo Álvarez 69 y/o M admitted on 10/09/19 for fall, burn to back. Chief Complaint: [] Interval history: Mr. Álvarez is a 69 year old M with a hx of diabetes type 2, alcohol abuser, and hypertension who presented to the ER due to a month chemical fall. Patient is a poor historian. Patient fell 2 days ago due to weak legs from diabetic neuropathy. He did not lose consciousness and did not have injury to his head. He admits he drinks alcohol every day for many years and the last time was a 4 days ago. When I saw this patient in the ER, he denied headache, dizziness, nausea, vomiting, abdominal pain, or dysuria. He told me that he lives alone. 10/09 Patient feels fine and does not have any complaints. Denies headache, dizziness, nausea or vomiting. Vital signs are stable phos is low, repleted. CM consulted Review of Systems All systems: reviewed and no additional remarkable complaints except as stated Constitutional Vitals: Vital Signs Temp Pulse Resp BP Pulse Ox 97.7 F 108 H 18 140/91 93 10/10/19 07:25 10/10/19 07:25 10/10/19 07:25 10/10/19 09:10 10/10/19 07:25 Period Temp Pulse Resp BP Sys/Bella Pulse Ox Last 24 Hr 97.7 F-99.2 F 53-111 14-25 122-182/72-128 91-97 Intake and Output 10/09/19 10/10/19 10/10/19 21:59 05:59 13:59 Intake Total 1000 835 240 Output Total 200 Balance 1000 635 240 Weight 98.203 kg Intake & Output: Intake & Output 10/09/19 10/10/19 10/10/19 21:59 05:59 13:59 Intake Total 1000 835 240 Output Total 200 Balance 1000 635 240 Weight 98.203 kg Intake: IV 1000 485 Lactated Ringers 1,000 ml @ 100 1000 485 mls/hr IV .Q10H [facility] Rx#: [id number] Oral 350 240 Output: Void Amount 200 Other: Meal Breakfast Percent of Meal Consumed 100% Feeding Ability Assist with Tray Set Up Stool Size Large Stool Color Brown Stool Consistency Soft # Bowel Movements 1 Additional findings Additional findings: General - No acute distress Eyes - PERRLA, EOM intact ENT no rhinorrhea, no noticeable or palpable swelling, no redness or rash around throat or on face Neck supple, no JVD, no thyromegaly Respiratory: Lungs -clear, no wheezing or crackles. Cardiovascular - RRR no m/r/g, GI - Normal bowel sounds, no distended, soft. Extremeties - No edema, cyanosis or clubbing. fine tremor in both hands. Skin: scattered erythema over back skin. No open wounds. Hemo/lymphatic/immune no lymphadenopathy Neurological Alert and oriented x 3, no focal neurological deficits. Psychiatry flat affect OBJ DATA Labs CBC & Chem 7: 10/10/19 05:18 10/10/19 05:18 Labs: Abnormal Lab Results 10/10/19 10/10/19 10/09/19 05:18 05:18 15:01 WBC 2.7 L RBC 3.70 L Hgb 12.1 L Hct 37.1 L MCV 100.3 H Plt Count 69 L Gran # 1.23 L Lymph # (Auto) 1.22 L VBG Lactic Acid Anion Gap 17.0 H Glucose Calcium 8.4 L Phosphorus 2.4 L Total Bilirubin 1.6 H AST 70 H Total Creatine Kinase Myoglobin Total Protein 5.8 L Albumin 3.0 L Urine Protein 100 A Urine Ketones 20 A Urine Urobilinogen 2.0 A Urine WBC 6 H Hyaline Casts 3 H 10/09/19 10/09/19 10/09/19 14:24 14:24 14:24 WBC 3.7 L RBC 3.99 L Hgb 13.1 L Hct 39.5 L MCV Plt Count 94 L Gran # Lymph # (Auto) 0.70 L VBG Lactic Acid 2.8 H Anion Gap 19.0 H Glucose 129 H Calcium Phosphorus Total Bilirubin 1.9 H AST 58 H Total Creatine Kinase 197 H Myoglobin 209 H Total Protein Albumin Urine Protein Urine Ketones Urine Urobilinogen Urine WBC Hyaline Casts Meds: Medications Alendronate Sodium (Fosamax) 70 mg PO Sa@0730 [facility] Aspirin (Aspirin) 81 mg PO DAILY [facility] Last Admin: 10/10/19 08:47 Dose: 81 mg Documented by: Calcium Acetate (Phoslo) 667 mg PO TIDCC [facility] Last Admin: 10/10/19 08:46 Dose: 667 mg Documented by: Cyanocobalamin (Vitamin B-12) 1,000 mcg PO QDAY [facility] Last Admin: 10/10/19 08:47 Dose: 1,000 mcg Documented by: Dextrose (Dextrose 50%) 0 ml IV UD PRN PRN Reason: Hypoglycemia Diagnostic Test (Pha) (Accu-Chek) 1 each FS [facility] Last Admin: 10/10/19 11:18 Dose: 1 each Documented by: Diazepam (Valium) 10 mg PO Q6HP PRN PRN Reason: Anxiety/Agitation Docusate Sodium (Colace) 100 mg PO BID [facility] Last Admin: 10/10/19 08:47 Dose: 100 mg Documented by: Enoxaparin Sodium (Lovenox) 40 mg SQ DAILY [facility] Last Admin: 10/10/19 09:50 Dose: 40 mg Documented by: Ergocalciferol (Drisdol) 50,000 unit PO We@2100 [facility] Folic Acid (Folic Acid) 1 mg PO DAILY [facility] Last Admin: 10/10/19 08:47 Dose: 1 mg Documented by: Gabapentin (Neurontin) 300 mg PO QID [facility] Last Admin: 10/10/19 08:47 Dose: 300 mg Documented by: Glucose (Insta-Glucose) 15 gm PO PRN PRN PRN Reason: Hypoglycemia Potassium Chloride 20 meq/Magnesium Sulfate 8.12 meq/Thiamine HCl 100 mg/Multivitamins/Minerals 10 ml/Sodium Chloride 1,023 mls @ 100 mls/hr IV .[id number] [facility] Last Admin: 10/10/19 04:56 Dose: Not Given Documented by: Sodium Chloride (Sodium Chloride 0.9%) 1,000 mls @ 75 mls/hr IV .[id number] [facility] Last Admin: 10/10/19 08:48 Dose: Not Given Documented by: Insulin Human Lispro (Humalog) 0 unit SQ [facility]; Protocol Last Admin: 10/10/19 11:18 Dose: Not Given Documented by: Iron Carb/Multivit/Riley/Folic Acid (Multivitamin W/Minerals) 1 tab PO BID [facility] Stop: 10/14/19 09:01 Last Admin: 10/10/19 08:47 Dose: 1 tab Documented by: Lorazepam (Ativan) 0.5 mg IV Q2-4HP PRN PRN Reason: Alcohol Withdrawal Ondansetron HCl (Zofran) 4 mg IV Q6HP PRN PRN Reason: Nausea And Vomiting Pantoprazole Sodium (Protonix) 40 mg PO QAMAC [facility] Last Admin: 10/10/19 08:46 Dose: 40 mg Documented by: Kaveh (Senokot) 2 tab PO HS [facility] Last Admin: 10/09/19 23:22 Dose: 2 tab Documented by: Sodium Chloride (Saline Flush) 10 ml IV Q8 [facility] Last Admin: 10/10/19 04:56 Dose: Not Given Documented by: Thiamine HCl (Vitamin B1) 100 mg PO TID [facility] Stop: 10/12/19 15:01 Last Admin: 10/10/19 08:48 Dose: 100 mg Documented by: Vitamin B Complex (Vitamin B Complex) 1 cap PO BID [facility] Stop: 10/14/19 09:01 Last Admin: 10/10/19 08:47 Dose: 1 cap Documented by: A/P Narrative A/P Narrative: 1. Mechanical fall I would not like to order CT of the head for him. Since no LOC and no focal neurologic deficits. EKG -no arrhythmia PT OT Advised him to stop drinking alcohol and control his blood sugar 2. Elevation of Ck, resolved IV fluid Repeat CK 72 today. Creatinine 0.8 3. Alcohol abuser/alcohol withdrawal [facility] protocol initiated Banana bag daily x3 US abdomen - pending golf manager and manager social media consult 4. Dehydration In the ER, 2 L was given IV fluid 5. DM type 2 Home meds do not include DM meds Insulin sliding scale BG well controlled 6. HTN BP acceptable No BP meds are included in home med list 7. Thrombocytopenia plt 69 today Repeating in the morning 8. Bleach chemical skin burn, back wound care 9. DVT prophylaxis: Lovenox 10. CODE STATUS: Full Deposition: lives alone CM consult Time Spent With Patient Time: Total time spent is greater than 50% in coordination of care (as documented) at patient's floor/unit and/or counseling patient: QUALITY Stroke Symptom Onset Unknown: No VTE Deep Vein Thrombosis/Pulmonary Embolism Present on Admission: No
[2019-10-10] MEDS: NEUTRA PHOS 1 PACKET PO SCH ×2 (13:22→20:52)
[2019-10-10] MEDS: HYDROmorphone 2 MG TABLET PO PRN ×2 (13:49→22:47)
[2019-10-10] MEDS: SENNOSIDES 1 TABLET PO SCH (20:51)
[2019-10-11] MEDS: 0.9 % SODIUM CHLORIDE 1,000 ML IV SCH ×2 (02:45→16:44)
[2019-10-11] MEDS: 0.9 % SODIUM CHLORIDE 10 ML SYRINGE IV SCH ×3 (05:00→20:14)
[2019-10-11] MEDS: PANTOPRAZOLE 40 MG TABLET PO SCH (06:51)
[2019-10-11] MEDS: INSULIN LISPRO 1 UNIT/0.01 ML UNIT SQ SCH ×4 (06:55→20:13)
[2019-10-11 07:00] LABS: Basophils # (Auto) 0.01 K/mcL (0.00-0.30); Basophils % (Auto) 0.4 % (0.0-2.0); Eosinophils # (Auto) 0.03 K/mcL (0.00-0.70); Eosinophils % (Auto) 1.2 % (0.0-7.0); Granulocytes % (Auto) 46.2 % (38.0-78.0); Hematocrit 34.3 % (40.1-51.0); Hemoglobin 11.1 g/dL (13.7-17.5); Lymphocytes # (Auto) 1.19 K/mcL (1.50-4.80); Lymphocytes % (Auto) 46.7 % (15.5-49.0); Mean Cell Volume 100.6 fL (80.0-100.0); Mean Corpuscular HGB Conc 32.4 g/dL (31.0-36.0); Mean Platelet Volume 9.6 fL (7.4-10.4); Monocytes # (Auto) 0.14 K/mcL (0.10-0.90); Monocytes % (Auto) 5.5 % (1.0-12.0); RBC 3.41 M/mcL (4.63-6.08); Red Cell Distribution Width 13.3 % (11.5-14.5); WBC 2.6 K/mcL (4.50-11.00)
[2019-10-11 07:02] LABS: Platelet Count 64 K/mcL (140-440)
[2019-10-11 07:15] LABS: ALT/SGPT 23 U/l (0-40); AST/SGOT 85 U/l (0-37); Albumin 2.7 gm/dL (3.2-5.2); Albumin/Globulin Ratio 1.1 (1.0-2.3); Alkaline Phosphatase 63 U/L (39-117); Blood Urea Nitrogen 13 mg/dl (8-23); Calcium 7.9 mg/dl (8.6-10.4); Carbon Dioxide 25 mmol/L (22-30); Chloride 101 mmol/L (96-108); Globulin 2.4 gm/dL (2.2-3.7); Glomerular Filtration Rate 92; Glucose 114 mg/dL (70-105)
[2019-10-11] MEDS: NEUTRA PHOS 1 PACKET PO SCH (08:30)
[2019-10-11] MEDS: DOCUSATE SODIUM 100 MG CAPSULE PO SCH ×2 (08:31→20:12)
[2019-10-11] MEDS: ENOXAPARIN 40 MG/0.4 ML SYRINGE SQ SCH (08:31)
[2019-10-11] MEDS: MULTIVIT,THER IRON,CA,FA & MIN 1 TABLET PO SCH ×2 (08:31→20:13)
[2019-10-11] MEDS: FOLIC ACID 1 MG TABLET PO SCH (08:31)
[2019-10-11] MEDS: THIAMINE 100 MG TABLET PO SCH ×3 (08:31→20:13)
[2019-10-11] MEDS: VITAMIN B COMPLEX 1 CAPSULE PO SCH ×2 (08:31→20:12)
[2019-10-11] MEDS: GABAPENTIN 300 MG CAPSULE PO SCH ×4 (08:31→20:13)
[2019-10-11] MEDS: CYANOCOBALAMIN (VITAMIN B-12) 500 MCG TABLET PO SCH (08:31)
[2019-10-11] MEDS: ASPIRIN 81 MG TAB.CHEW PO SCH (08:31)
[2019-10-11] MEDS ORDERED: DILTIAZEM 25 MG/5 ML VIAL IV ONE (09:07)
--- NOTE | 2019-10-11 10:28 | Internal Med Progress Note ---
SUBJECTIVE Subjective Patient information: Note initiated : 10/11/19 at 10:24 am Service Date, if different from initiated Date: [] Patient: Ramo Álvarez 69 y/o M admitted on 10/09/19 for fall, burn to back. Chief Complaint: Mr. Álvarez is a 69 year old M with a hx of diabetes type 2, alcohol abuser, and hypertension who presented to the ER due to a month chemical fall. Patient is a poor historian. Patient fell 2 days ago due to weak legs from diabetic neuropathy. He did not lose consciousness and did not have injury to his head. He admits he drinks alcohol every day for many years and the last time was a 4 days ago. When I saw this patient in the ER, he denied headache, dizziness, nausea, vomiting, abdominal pain, or dysuria. He told me that he lives alone. 10/09 Patient feels fine and does not have any complaints. Denies headache, dizziness, nausea or vomiting. Vital signs are stable phos is low, repleted. CM consulted 10/10-patient doing well. Wound care ongoing for upper back bleach burn. IV fluids discontinued. Anticipate discharge to SNF in 24 hours. No overnight f ever chills or concerns per nursing staff. Hepatomegaly with fatty changes on ultrasound. Constitutional Vitals: Vital Signs Temp Pulse Resp BP Pulse Ox 98.9 F 108 H 20 122/75 92 10/11/19 06:33 10/11/19 06:33 10/11/19 06:33 10/11/19 06:33 10/11/19 06:33 Period Temp Pulse Resp BP Sys/Bella Pulse Ox Last 24 Hr 97.9 F-99.4 F 106-117 16-20 116-137/75-88 91-95 Intake and Output 10/10/19 10/11/19 10/11/19 21:59 05:59 13:59 Intake Total 1939 1523 Output Total 200 100 100 Balance 1740 1423 -100 Weight 102.285 kg Alert and respond to command nonlabored breathing No anxiety Nondistended abdomen s Intake & Output: Intake & Output 10/10/19 10/11/19 10/11/19 21:59 05:59 13:59 Intake Total 1939 1523 Output Total 200 100 100 Balance 1740 1423 -100 Weight 102.285 kg Intake: IV 1000 1023 Sodium Chloride 0.9% 1,000 ml @ 1000 75 mls/hr IV .[id number] [facility] Rx#: [id number] Potassium Chloride 20 Meq 1023 Magnesium Sulfate 8.12 Meq Vitamin B1 100 mg Infuvite Adult 10 ml In Sodium Chloride 0.9% 1,000 ml @ 100 mls/hr IV . [id number] [facility] Rx#:[id number] Oral 940 500 Output: Void Amount 200 100 100 Other: Meal Dinner Percent of Meal Consumed 100% Urine Color Light Holly Light Holly Light Holly Urine Odor Strong Strong Stool Size Large Stool Color Brown Stool Consistency Loose # Bowel Movements 1 OBJ DATA Labs CBC & Chem 7: 10/11/19 04:57 10/11/19 04:57 Labs: Abnormal Lab Results 10/11/19 10/11/19 10/10/19 04:57 04:57 05:18 WBC 2.6 L 2.7 L RBC 3.41 L 3.70 L Hgb 11.1 L 12.1 L Hct 34.3 L 37.1 L MCV 100.6 H 100.3 H Plt Count 64 L 69 L Gran # 1.18 L 1.23 L Lymph # (Auto) 1.19 L 1.22 L VBG Lactic Acid Anion Gap Glucose 114 H Calcium 7.9 L Phosphorus Total Bilirubin AST 85 H Total Creatine Kinase Myoglobin Total Protein 5.1 L Albumin 2.7 L Urine Protein Urine Ketones Urine Urobilinogen Urine WBC Hyaline Casts 10/10/19 10/09/19 10/09/19 05:18 15:01 14:24 WBC RBC Hgb Hct MCV Plt Count Gran # Lymph # (Auto) VBG Lactic Acid 2.8 H Anion Gap 17.0 H Glucose Calcium 8.4 L Phosphorus 2.4 L Total Bilirubin 1.6 H AST 70 H Total Creatine Kinase Myoglobin Total Protein 5.8 L Albumin 3.0 L Urine Protein 100 A Urine Ketones 20 A Urine Urobilinogen 2.0 A Urine WBC 6 H Hyaline Casts 3 H 10/09/19 10/09/19 14:24 14:24 WBC 3.7 L RBC 3.99 L Hgb 13.1 L Hct 39.5 L MCV Plt Count 94 L Gran # Lymph # (Auto) 0.70 L VBG Lactic Acid Anion Gap 19.0 H Glucose 129 H Calcium Phosphorus Total Bilirubin 1.9 H AST 58 H Total Creatine Kinase 197 H Myoglobin 209 H Total Protein Albumin Urine Protein Urine Ketones Urine Urobilinogen Urine WBC Hyaline Casts Meds: Medications Alendronate Sodium (Fosamax) 70 mg PO Sa@0730 [facility] Aspirin (Aspirin) 81 mg PO DAILY [facility] Last Admin: 10/11/19 08:31 Dose: 81 mg Documented by: Cyanocobalamin (Vitamin B-12) 1,000 mcg PO QDAY [facility] Last Admin: 10/11/19 08:31 Dose: 1,000 mcg Documented by: Dextrose (Dextrose 50%) 0 ml IV UD PRN PRN Reason: Hypoglycemia Diagnostic Test (Pha) (Accu-Chek) 1 each FS ACHS [facility] Last Admin: 10/11/19 06:55 Dose: 1 each Documented by: Diazepam (Valium) 10 mg PO Q6HP PRN PRN Reason: Anxiety/Agitation Last Admin: 10/11/19 09:41 Dose: 10 mg Documented by: Docusate Sodium (Colace) 100 mg PO BID [facility] Last Admin: 10/11/19 08:31 Dose: 100 mg Documented by: Enoxaparin Sodium (Lovenox) 40 mg SQ DAILY [facility] Last Admin: 10/11/19 08:31 Dose: 40 mg Documented by: Ergocalciferol (Drisdol) 50,000 unit PO We@2100 [facility] Folic Acid (Folic Acid) 1 mg PO DAILY [facility] Last Admin: 10/11/19 08:31 Dose: 1 mg Documented by: Gabapentin (Neurontin) 300 mg PO QID [facility] Last Admin: 10/11/19 08:31 Dose: 300 mg Documented by: Glucose (Insta-Glucose) 15 gm PO PRN PRN PRN Reason: Hypoglycemia Hydromorphone HCl (Dilaudid) 2 mg PO Q6HP PRN; Protocol PRN Reason: Per Pain Protocol Last Admin: 10/10/19 22:47 Dose: 2 mg Documented by: Potassium Chloride 20 meq/Magnesium Sulfate 8.12 meq/Thiamine HCl 100 mg/Multivitamins/Minerals 10 ml/Sodium Chloride 1,023 mls @ 100 mls/hr IV .[id number] [facility] Stop: 10/14/19 20:14 Last Infusion: 10/11/19 02:45 Dose: Infused Documented by: Sodium Chloride (Sodium Chloride 0.9%) 1,000 mls @ 75 mls/hr IV .[id number] [facility] Last Admin: 10/11/19 02:45 Dose: 75 mls/hr Documented by: Insulin Human Lispro (Humalog) 0 unit SQ ACHS [facility]; Protocol Last Admin: 10/11/19 06:55 Dose: Not Given Documented by: Iron Carb/Multivit/[place]/Folic Acid (Multivitamin W/Minerals) 1 tab PO BID [facility] Stop: 10/14/19 09:01 Last Admin: 10/11/19 08:31 Dose: 1 tab Documented by: Lorazepam (Ativan) 0.5 mg IV Q2-4HP PRN PRN Reason: Alcohol Withdrawal Ondansetron HCl (Zofran) 4 mg IV Q6HP PRN PRN Reason: Nausea And Vomiting Pantoprazole Sodium (Protonix) 40 mg PO QAMAC [facility] Last Admin: 10/11/19 06:51 Dose: 40 mg Documented by: Senna (Senokot) 2 tab PO HS [facility] Last Admin: 10/10/19 20:51 Dose: 2 tab Documented by: Sodium Chloride (Saline Flush) 10 ml IV Q8 [facility] Last Admin: 10/11/19 05:00 Dose: Not Given Documented by: Thiamine HCl (Vitamin B1) 100 mg PO TID [facility] Stop: 10/12/19 15:01 Last Admin: 10/11/19 08:31 Dose: 100 mg Documented by: Vitamin B Complex (Vitamin B Complex) 1 cap PO BID [facility] Stop: 10/14/19 09:01 Last Admin: 10/11/19 08:31 Dose: 1 cap Documented by: A/P Narrative A/P Narrative: * Mechanical fall-I ongoing PT OT/gait and safety eval. * Chemical burn upper back-ongoing wound care * Mild rhabdomyolysis resolved * Alcohol dependence/alcohol withdrawal on [facility] protocol. Fatty changes on liver ultrasound * DM type 2-SSI/CC diet * DVT prophylaxis: Lovenox * CODE STATUS: Full Plan * Continue wound care * Might of alcohol withdrawal * Gait and safety eval/PT OT/nutrition support * Discharge planning Time Spent With Patient Time: Total time spent is greater than 50% in coordination of care (as documented) at patient's floor/unit and/or counseling patient: QUALITY Stroke Symptom Onset Unknown: No VTE Deep Vein Thrombosis/Pulmonary Embolism Present on Admission: No
[2019-10-11] MEDS: [UNRECOGNIZED DRUG - REMARK] IV SCH (14:01)
[2019-10-11] MEDS: SENNOSIDES 1 TABLET PO SCH (20:12)
[2019-10-11] MEDS ORDERED: ERGOCALCIFEROL (VITAMIN D2) 50,000 UNIT CAPSULE PO SCH (21:00)
[2019-10-11] MEDS: HYDROmorphone 2 MG TABLET PO PRN (21:05)
[2019-10-12] MEDS: 0.9 % SODIUM CHLORIDE 10 ML SYRINGE IV SCH ×3 (04:10→21:11)
[2019-10-12] MEDS: [UNRECOGNIZED DRUG - REMARK] IV SCH (06:38)
[2019-10-12 06:47] LABS: Basophils # (Auto) 0.01 K/mcL (0.00-0.30); Basophils % (Auto) 0.4 % (0.0-2.0); Eosinophils # (Auto) 0.04 K/mcL (0.00-0.70); Eosinophils % (Auto) 1.6 % (0.0-7.0); Granulocytes % (Auto) 52.9 % (38.0-78.0); Hematocrit 32.3 % (40.1-51.0); Hemoglobin 10.4 g/dL (13.7-17.5); Lymphocytes # (Auto) 0.96 K/mcL (1.50-4.80); Lymphocytes % (Auto) 37.6 % (15.5-49.0); Mean Cell Volume 101.6 fL (80.0-100.0); Mean Corpuscular HGB Conc 32.2 g/dL (31.0-36.0); Mean Platelet Volume 10.5 fL (7.4-10.4); Monocytes # (Auto) 0.19 K/mcL (0.10-0.90); Monocytes % (Auto) 7.5 % (1.0-12.0); Platelet Count 54 K/mcL (140-440); RBC 3.18 M/mcL (4.63-6.08); Red Cell Distribution Width 13.4 % (11.5-14.5); WBC 2.6 K/mcL (4.50-11.00)
[2019-10-12 07:17] LABS: ALT/SGPT 34 U/l (0-40); AST/SGOT 110 U/l (0-37); Albumin 2.7 gm/dL (3.2-5.2); Alkaline Phosphatase 82 U/L (39-117); Bilirubin,Total 1.1 mg/dL (0.0-1.0); Blood Urea Nitrogen 12 mg/dl (8-23); Calcium 8.2 mg/dl (8.6-10.4); Carbon Dioxide 28 mmol/L (22-30); Chloride 99 mmol/L (96-108); Globulin 2.6 gm/dL (2.2-3.7); Glomerular Filtration Rate 92; Glucose 104 mg/dL (70-105)
[2019-10-12] MEDS: INSULIN LISPRO 1 UNIT/0.01 ML UNIT SQ SCH ×4 (07:41→21:07)
[2019-10-12] MEDS: PANTOPRAZOLE 40 MG TABLET PO SCH (07:41)
[2019-10-12] MEDS: GABAPENTIN 300 MG CAPSULE PO SCH ×4 (08:14→21:11)
[2019-10-12] MEDS: CYANOCOBALAMIN (VITAMIN B-12) 500 MCG TABLET PO SCH (08:14)
[2019-10-12] MEDS: THIAMINE 100 MG TABLET PO SCH ×2 (08:14→15:01)
[2019-10-12] MEDS: VITAMIN B COMPLEX 1 CAPSULE PO SCH ×2 (08:14→21:11)
[2019-10-12] MEDS: MULTIVIT,THER IRON,CA,FA & MIN 1 TABLET PO SCH ×2 (08:14→21:11)
[2019-10-12] MEDS: ENOXAPARIN 40 MG/0.4 ML SYRINGE SQ SCH (08:15)
[2019-10-12] MEDS: DOCUSATE SODIUM 100 MG CAPSULE PO SCH ×2 (08:15→21:08)
[2019-10-12] MEDS: ASPIRIN 81 MG TAB.CHEW PO SCH (08:15)
[2019-10-12] MEDS: FOLIC ACID 1 MG TABLET PO SCH (08:15)
--- NOTE | 2019-10-12 09:37 | Internal Med Progress Note ---
SUBJECTIVE Subjective Patient information: Note initiated : 10/12/19 at 9:35 am Service Date, if different from initiated Date: [] Patient: Ramo Álvarez 69 y/o M admitted on 10/09/19 for fall, burn to back. Chief Complaint: [] Mr. Álvarez is a 69 year old M with a hx of diabetes type 2, alcohol abuser, and hypertension who presented to the ER due to a month chemical fall. Patient is a poor historian. Patient fell 2 days ago due to weak legs from diabetic neuropathy. He did not lose consciousness and did not have injury to his head. He admits he drinks alcohol every day for many years and the last time was a 4 days ago. When I saw this patient in the ER, he denied headache, dizziness, nausea, vomiting, abdominal pain, or dysuria. He told me that he lives alone. 10/09 Patient feels fine and does not have any complaints. Denies headache, dizziness, nausea or vomiting. Vital signs are stable phos is low, repleted. CM consulted 10/10-patient doing well. Wound care ongoing for upper back bleach burn. IV fluids discontinued. Anticipate discharge to SNF in 24 hours. No overnight fever chills or concerns per nursing staff. Hepatomegaly with fatty changes on ultrasound. -patient feels very weak. Ongoing physical therapy. Ongoing wound care. No overnight events. No concerns per nursing staff. LFTs improving. Constitutional Vitals: Vital Signs Temp Pulse Resp BP Pulse Ox 97.2 F 102 H 14 112/72 89 L 10/12/19 08:00 10/12/19 08:00 10/12/19 08:00 10/12/19 08:00 10/12/19 08:00 Period Temp Pulse Resp BP Sys/Bella Pulse Ox Last 24 Hr 97.2 F-99.3 F 102-113 14-20 92-132/63-87 89-93 Intake and Output 10/11/19 10/12/19 10/12/19 21:59 05:59 13:59 Intake Total 420 1873 400 Output Total 325 276 Balance 95 1597 400 Weight 104.553 kg Feels weak alert oriented Sitting on chair Nonlabored breathing No lymphedema Intake & Output: Intake & Output 10/11/19 10/12/19 10/12/19 21:59 05:59 13:59 Intake Total 420 1873 400 Output Total 325 276 Balance 95 1597 400 Weight 104.553 kg Intake: IV 1023 Potassium Chloride 20 Meq 1023 Magnesium Sulfate 8.12 Meq Vitamin B1 100 mg Infuvite Adult 10 ml In Sodium Chloride 0.9% 1,000 ml @ 100 mls/hr IV . [id number] [facility] Rx#:[id number] Oral 420 850 400 Output: Urine Catheter Amount 100 Void Amount 325 175 # of times incontinent of urine 1 Other: Meal Dinner Breakfast Percent of Meal Consumed 100% 100% Feeding Ability Independent Independent Urine Appearance Clear Clear Urine Color Tea Colored Tea Colored Pale Urine Odor Strong Normal Stool Size Smear Large Stool Color Brown Brown Stool Consistency Soft Soft # Voids 1 # Bowel Movements 1 1 OBJ DATA Labs CBC & Chem 7: 10/12/19 05:00 10/12/19 05:00 Labs: Abnormal Lab Results 10/12/19 10/12/19 10/11/19 05:00 05:00 04:57 WBC 2.6 L RBC 3.18 L Hgb 10.4 L Hct 32.3 L MCV 101.6 H Plt Count 54 L MPV 10.5 H Gran # 1.35 L Lymph # (Auto) 0.96 L VBG Lactic Acid Anion Gap Glucose 114 H Calcium 8.2 L 7.9 L Phosphorus Total Bilirubin 1.1 H AST 110 H 85 H Total Creatine Kinase Myoglobin Total Protein 5.3 L 5.1 L Albumin 2.7 L 2.7 L Urine Protein Urine Ketones Urine Urobilinogen Urine WBC Hyaline Casts 10/11/19 10/10/19 10/10/19 04:57 05:18 05:18 WBC 2.6 L 2.7 L RBC 3.41 L 3.70 L Hgb 11.1 L 12.1 L Hct 34.3 L 37.1 L MCV 100.6 H 100.3 H Plt Count 64 L 69 L MPV Gran # 1.18 L 1.23 L Lymph # (Auto) 1.19 L 1.22 L VBG Lactic Acid Anion Gap 17.0 H Glucose Calcium 8.4 L Phosphorus 2.4 L Total Bilirubin 1.6 H AST 70 H Total Creatine Kinase Myoglobin Total Protein 5.8 L Albumin 3.0 L Urine Protein Urine Ketones Urine Urobilinogen Urine WBC Hyaline Casts 10/09/19 10/09/19 10/09/19 15:01 14:24 14:24 WBC RBC Hgb Hct MCV Plt Count MPV Gran # Lymph # (Auto) VBG Lactic Acid 2.8 H Anion Gap 19.0 H Glucose 129 H Calcium Phosphorus Total Bilirubin 1.9 H AST 58 H Total Creatine Kinase 197 H Myoglobin 209 H Total Protein Albumin Urine Protein 100 A Urine Ketones 20 A Urine Urobilinogen 2.0 A Urine WBC 6 H Hyaline Casts 3 H 10/09/19 14:24 WBC 3.7 L RBC 3.99 L Hgb 13.1 L Hct 39.5 L MCV Plt Count 94 L MPV Gran # Lymph # (Auto) 0.70 L VBG Lactic Acid Anion Gap Glucose Calcium Phosphorus Total Bilirubin AST Total Creatine Kinase Myoglobin Total Protein Albumin Urine Protein Urine Ketones Urine Urobilinogen Urine WBC Hyaline Casts Meds: Medications Alendronate Sodium (Fosamax) 70 mg PO Sa@0730 [facility] Aspirin (Aspirin) 81 mg PO DAILY [facility] Last Admin: 10/12/19 08:15 Dose: 81 mg Documented by: Cyanocobalamin (Vitamin B-12) 1,000 mcg PO QDAY [facility] Last Admin: 10/12/19 08:14 Dose: 1,000 mcg Documented by: Dextrose (Dextrose 50%) 0 ml IV UD PRN PRN Reason: Hypoglycemia Diagnostic Test (Pha) (Accu-Chek) 1 each FS ACHS [facility] Last Admin: 10/12/19 07:38 Dose: 1 each Documented by: Diazepam (Valium) 10 mg PO Q6HP PRN PRN Reason: Anxiety/Agitation Last Admin: 10/11/19 09:41 Dose: 10 mg Documented by: Docusate Sodium (Colace) 100 mg PO BID [facility] Last Admin: 10/12/19 08:15 Dose: 100 mg Documented by: Enoxaparin Sodium (Lovenox) 40 mg SQ DAILY [facility] Last Admin: 10/12/19 08:15 Dose: 40 mg Documented by: Ergocalciferol (Drisdol) 50,000 unit PO We@2100 [facility] Last Admin: 10/11/19 20:13 Dose: 50,000 unit Documented by: Folic Acid (Folic Acid) 1 mg PO DAILY [facility] Last Admin: 10/12/19 08:15 Dose: 1 mg Documented by: Gabapentin (Neurontin) 300 mg PO QID [facility] Last Admin: 10/12/19 08:14 Dose: 300 mg Documented by: Glucose (Insta-Glucose) 15 gm PO PRN PRN PRN Reason: Hypoglycemia Hydromorphone HCl (Dilaudid) 2 mg PO Q6HP PRN; Protocol PRN Reason: Per Pain Protocol Last Admin: 10/11/19 21:05 Dose: 2 mg Documented by: Insulin Human Lispro (Humalog) 0 unit SQ ACHS [facility]; Protocol Last Admin: 10/12/19 07:41 Dose: Not Given Documented by: Iron Carb/Multivit/Compressor Station Operator/Folic Acid (Multivitamin W/Minerals) 1 tab PO BID [facility] Stop: 10/14/19 09:01 Last Admin: 10/12/19 08:14 Dose: 1 tab Documented by: Lorazepam (Ativan) 0.5 mg IV Q2-4HP PRN PRN Reason: Alcohol Withdrawal Ondansetron HCl (Zofran) 4 mg IV Q6HP PRN PRN Reason: Nausea And Vomiting Pantoprazole Sodium (Protonix) 40 mg PO QAMAC [facility] Last Admin: 10/12/19 07:41 Dose: 40 mg Documented by: Senna (Senokot) 2 tab PO HS [facility] Last Admin: 10/11/19 20:12 Dose: 2 tab Documented by: Sodium Chloride (Saline Flush) 10 ml IV Q8 [facility] Last Admin: 10/12/19 04:10 Dose: Not Given Documented by: Thiamine HCl (Vitamin B1) 100 mg PO TID [facility] Stop: 10/12/19 15:01 Last Admin: 10/12/19 08:14 Dose: 100 mg Documented by: Vitamin B Complex (Vitamin B Complex) 1 cap PO BID [facility] Stop: 10/14/19 09:01 Last Admin: 10/12/19 08:14 Dose: 1 cap Documented by: A/P Narrative A/P Narrative: * Mechanical fall-continue PT OT/gait and safety eval. plan on discharging to SNF for continued rehab goals * Chemical burn upper back-ongoing wound care. Will discharge to SNF for continued wound care * Mild rhabdomyolysis resolved * Alcohol dependence/alcohol withdrawal on [facility] protocol. Fatty changes on liver ultrasound * DM type 2-SSI/CC diet * DVT prophylaxis: Lovenox * CODE STATUS: Full Plan * Continue wound care * Gait and safety eval/PT OT/nutrition support * Discharge planning likely SNF in 24 hours Time Spent With Patient Time: Total time spent is greater than 50% in coordination of care (as documented) at patient's floor/unit and/or counseling patient: QUALITY Stroke Symptom Onset Unknown: No VTE Deep Vein Thrombosis/Pulmonary Embolism Present on Admission: No
--- NOTE | 2019-10-12 13:40 | General Surgery Consult Note ---
HPI Data of Consult Primary Care Provider: Vianey Wolfe Consult Narrative Patient Information: Note initiated : 10/12/19 at 1:40 pm Service Date, if different from initiated Date: [] Patient: Ramo Álvarez 69 y/o M admitted on 10/09/19 for fall, burn to back. Chief Complaint: [] cc:: CC: Marcellus Fang [facility] Medical History Benign neoplasm of skin (Chronic) Chronic kidney disease, stage II (mild) (Chronic) Chronic kidney disease, stage III (moderate) (Chronic) CKD stage 3 secondary to diabetes (Chronic) DM (diabetes mellitus) type II controlled, 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) ED (erectile dysfunction) of non-organic origin (Chronic) Edema (Chronic) Essential hypertension (Chronic) GERD (gastroesophageal reflux disease) (Chronic) Hemangioma (Chronic) Hyperlipidemia (Chronic) Hypertensive renal disease (Chronic) Lumbago (Chronic) Morbid obesity (Chronic) Osteoarthritis of knees, bilateral (Chronic) Pure hyperglyceridemia (Chronic) Renal disease (Chronic) Surgical History History of carpal tunnel release of both wrists (Chronic) 1979 Family History father History of coronary artery bypass surgery, Onset Age: 81 x2 maternal side of family Malignant neoplasm of colon brother Type 2 diabetes mellitus maternal side family Cerebrovascular accident (CVA) Social History marital status: occupational status: employed occupation: [employer] smoking status: Former smoker alcohol intake frequency: 2+ drinks per day substance use type: does not use MEDS/ALLERGIES Home Medications and Allergies Home Medications Medication Instructions Recorded Confirmed Type aspirin 81 mg tablet,delayed 81 mg PO QDAY tab 11/28/14 10/09/19 History release cyanocobalamin (vitamin B-12) 1,000 mcg PO QDAY tab 11/28/14 10/09/19 History 1,000 mcg tablet omega-3 fatty acids 1,000 mg 2,000 mg PO BID cap 03/21/15 10/09/19 History capsule acetaminophen 500 mg PO Q4-6HP PRN 05/06/17 10/09/19 History hydromorphone 2 mg PO Q4HP PRN #40 tab 05/10/17 10/09/19 Rx cholecalciferol (vitamin D3) 1,250 50,000 unit PO WE@2100 12/13/17 10/10/19 History mcg (50,000 unit) capsule folic acid 400 mcg tablet 400 mcg PO QDAY tab 12/13/17 10/09/19 History gabapentin 300 mg capsule 300 mg PO QID cap 12/13/17 10/09/19 History lansoprazole 30 mg capsule,delayed 30 mg PO Q48 PRN 12/13/17 10/09/19 History release magnesium oxide 400 mg PO BID cap 12/13/17 10/09/19 History sildenafil 100 mg tablet 100 mg PO QDAY PRN tab 02/27/19 10/09/19 History alendronate 70 mg PO SA@0730 10/09/19 10/10/19 History Allergies Allergy/AdvReac Type Severity Reaction Status Date / Time oxycodone [From Percocet] Allergy Mild Hives/Itchi Verified 10/09/19 13:34 ng Physical Examination Vital Signs Vital signs: Temp Pulse Resp BP Pulse Ox 98 F 102 H 16 126/75 93 10/12/19 12:23 10/12/19 12:23 10/12/19 12:23 10/12/19 12:23 10/12/19 12:23 Results Labs Result diagrams: 10/12/19 05:00 10/12/19 05:00 Labs: Abnormal lab results 10/12/19 10/12/19 Range/Units 05:00 05:00 WBC 2.6 L (4.50-11.00) K/mcL RBC 3.18 L (4.63-6.08) M/mcL Hgb 10.4 L (13.7-17.5) g/dL Hct 32.3 L (40.1-51.0) % MCV 101.6 H (80.0-100.0) fL Plt Count 54 L (140-440) K/mcL MPV 10.5 H (7.4-10.4) fL Gran # 1.35 L (1.80-8.00) K/mcL Lymph # (Auto) 0.96 L (1.50-4.80) K/mcL Calcium 8.2 L (8.6-10.4) mg/dl Total Bilirubin 1.1 H (0.0-1.0) mg/dL AST 110 H (0-37) U/l Total Protein 5.3 L (5.9-8.4) gm/dL Albumin 2.7 L (3.2-5.2) gm/dL Diabetes panel 10/12/19 Range/Units 05:00 Sodium 138 (133-145) mmol/L Potassium 3.9 (3.3-5.1) mmol/L Chloride 99 (96-108) mmol/L Carbon Dioxide 28 (22-30) mmol/L BUN 12 (8-23) mg/dl Creatinine 0.8 (0.7-1.2) mg/dl Glucose 104 (70-105) mg/dL Calcium 8.2 L (8.6-10.4) mg/dl AST 110 H (0-37) U/l ALT 34 (0-40) U/l Alkaline Phosphatase 82 (39-117) U/L Total Protein 5.3 L (5.9-8.4) gm/dL Albumin 2.7 L (3.2-5.2) gm/dL Calcium panel 10/12/19 Range/Units 05:00 Calcium 8.2 L (8.6-10.4) mg/dl Albumin 2.7 L (3.2-5.2) gm/dL Pituitary panel 10/12/19 Range/Units 05:00 Sodium 138 (133-145) mmol/L Potassium 3.9 (3.3-5.1) mmol/L Chloride 99 (96-108) mmol/L Carbon Dioxide 28 (22-30) mmol/L BUN 12 (8-23) mg/dl Creatinine 0.8 (0.7-1.2) mg/dl Glucose 104 (70-105) mg/dL Calcium 8.2 L (8.6-10.4) mg/dl Adrenal panel 10/12/19 Range/Units 05:00 Sodium 138 (133-145) mmol/L Potassium 3.9 (3.3-5.1) mmol/L Chloride 99 (96-108) mmol/L Carbon Dioxide 28 (22-30) mmol/L BUN 12 (8-23) mg/dl Creatinine 0.8 (0.7-1.2) mg/dl Glucose 104 (70-105) mg/dL Calcium 8.2 L (8.6-10.4) mg/dl Total Bilirubin 1.1 H (0.0-1.0) mg/dL AST 110 H (0-37) U/l ALT 34 (0-40) U/l Alkaline Phosphatase 82 (39-117) U/L Total Protein 5.3 L (5.9-8.4) gm/dL Albumin 2.7 L (3.2-5.2) gm/dL All other labs normal. A/P Time Spent With Patient Time: Total time spent is greater than 50% in coordination of care (as documented) at patient's floor/unit and/or counseling patient:
--- NOTE | 2019-10-12 14:17 | General Surgery Consult Note ---
HPI Data of Consult Primary Care Provider: Vianey Wolfe Consult Narrative Patient Information: Note initiated : 10/12/19 at 2:12 pm Service Date, if different from initiated Date: [] Patient: Ramo Álvarez 69 y/o M admitted on 10/09/19 for fall, burn to back. Chief Complaint: [] cc:: CC: Marcellus Fang 69/M I saw this patient upon admission and reassessed him again today on rounds with Lois NAVARRO In Patient wound care nurse. Patient admitted with chemical luz (Bleach) of upper back and LEFT great toe. Accidental fall at home. NO preceding acute constitutional or systemic complaints. Co-Morbid conditions. LIVES by himself. CKD, HTN, DM with neuropathy, Morbid obesity and ETOH use. [facility] Medical History Benign neoplasm of skin (Chronic) Chronic kidney disease, stage II (mild) (Chronic) Chronic kidney disease, stage III (moderate) (Chronic) CKD stage 3 secondary to diabetes (Chronic) DM (diabetes mellitus) type II controlled, 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) ED (erectile dysfunction) of non-organic origin (Chronic) Edema (Chronic) Essential hypertension (Chronic) GERD (gastroesophageal reflux disease) (Chronic) Hemangioma (Chronic) Hyperlipidemia (Chronic) Hypertensive renal disease (Chronic) Lumbago (Chronic) Morbid obesity (Chronic) Osteoarthritis of knees, bilateral (Chronic) Pure hyperglyceridemia (Chronic) Renal disease (Chronic) Surgical History History of carpal tunnel release of both wrists (Chronic) 1979 Family History father History of coronary artery bypass surgery, Onset Age: 81 x2 maternal side of family Malignant neoplasm of colon brother Type 2 diabetes mellitus maternal side family Cerebrovascular accident (CVA) Social History marital status: occupational status: employed occupation: [employer] smoking status: Former smoker alcohol intake frequency: 2+ drinks per day substance use type: does not use MEDS/ALLERGIES Home Medications and Allergies Home Medications Medication Instructions Recorded Confirmed Type aspirin 81 mg tablet,delayed 81 mg PO QDAY tab 11/28/14 10/09/19 History release cyanocobalamin (vitamin B-12) 1,000 mcg PO QDAY tab 11/28/14 10/09/19 History 1,000 mcg tablet omega-3 fatty acids 1,000 mg 2,000 mg PO BID cap 03/21/15 10/09/19 History capsule acetaminophen 500 mg PO Q4-6HP PRN 05/06/17 10/09/19 History hydromorphone 2 mg PO Q4HP PRN #40 tab 05/10/17 10/09/19 Rx cholecalciferol (vitamin D3) 1,250 50,000 unit PO WE@2100 12/13/17 10/10/19 History mcg (50,000 unit) capsule folic acid 400 mcg tablet 400 mcg PO QDAY tab 12/13/17 10/09/19 History gabapentin 300 mg capsule 300 mg PO QID cap 12/13/17 10/09/19 History lansoprazole 30 mg capsule,delayed 30 mg PO Q48 PRN 12/13/17 10/09/19 History release magnesium oxide 400 mg PO BID cap 12/13/17 10/09/19 History sildenafil 100 mg tablet 100 mg PO QDAY PRN tab 02/27/19 10/09/19 History alendronate 70 mg PO SA@0730 10/09/19 10/10/19 History Allergies Allergy/AdvReac Type Severity Reaction Status Date / Time oxycodone [From Percocet] Allergy Mild Hives/Itchi Verified 10/09/19 13:34 ng Physical Examination Vital Signs Vital signs: Temp Pulse Resp BP Pulse Ox 98 F 102 H 16 126/75 93 10/12/19 12:23 10/12/19 12:23 10/12/19 12:23 10/12/19 12:23 10/12/19 12:23 General physical appearance General physical exam: well developed, well nourished, no distress, moderate pain, chronically ill and obese Eyes Eye exam: PERRL and normal ocular movement ENT ENT exam: normal pinna, normal mucosa and no congestion Head Head exam IM: Present atraumatic and normal inspection Neck Neck exam: no masses, trachea midline and no venous distension Cardiovascular Cardiovascular exam IM: Present normal rate and rhythm Cardiovascular: Peripheral pulses palpable. Respiratory Respiratory exam: normal respiratory effort and clear to auscultation Abdomen Abdomen: Present soft, non tender and bowel sounds Integumentary Integumentary: Present other (2nd degress chemical burn of upper back scapular area is improving. NO blisters or bruises. Dry yellow dermal necrotis patch 4 x 3 CM improving. Blistered areas around left great toe are dry and granul ating.) Neurologic Neurologic: Present other (Peripheral neuropathy Mixed ( DM) ) Musculoskeletal Musculoskeletal: Present normal posture Psychiatric Psychiatric: Present oriented to time, oriented to person, oriented to place, speech is normal and memory intact Results Labs Result diagrams: 10/12/19 05:00 10/12/19 05:00 Labs: Abnormal lab results 10/12/19 10/12/19 Range/Units 05:00 05:00 WBC 2.6 L (4.50-11.00) K/mcL RBC 3.18 L (4.63-6.08) M/mcL Hgb 10.4 L (13.7-17.5) g/dL Hct 32.3 L (40.1-51.0) % MCV 101.6 H (80.0-100.0) fL Plt Count 54 L (140-440) K/mcL MPV 10.5 H (7.4-10.4) fL Gran # 1.35 L (1.80-8.00) K/mcL Lymph # (Auto) 0.96 L (1.50-4.80) K/mcL Calcium 8.2 L (8.6-10.4) mg/dl Total Bilirubin 1.1 H (0.0-1.0) mg/dL AST 110 H (0-37) U/l Total Protein 5.3 L (5.9-8.4) gm/dL Albumin 2.7 L (3.2-5.2) gm/dL Diabetes panel 10/12/19 Range/Units 05:00 Sodium 138 (133-145) mmol/L Potassium 3.9 (3.3-5.1) mmol/L Chloride 99 (96-108) mmol/L Carbon Dioxide 28 (22-30) mmol/L BUN 12 (8-23) mg/dl Creatinine 0.8 (0.7-1.2) mg/dl Glucose 104 (70-105) mg/dL Calcium 8.2 L (8.6-10.4) mg/dl AST 110 H (0-37) U/l ALT 34 (0-40) U/l Alkaline Phosphatase 82 (39-117) U/L Total Protein 5.3 L (5.9-8.4) gm/dL Albumin 2.7 L (3.2-5.2) gm/dL Calcium panel 10/12/19 Range/Units 05:00 Calcium 8.2 L (8.6-10.4) mg/dl Albumin 2.7 L (3.2-5.2) gm/dL Pituitary panel 10/12/19 Range/Units 05:00 Sodium 138 (133-145) mmol/L Potassium 3.9 (3.3-5.1) mmol/L Chloride 99 (96-108) mmol/L Carbon Dioxide 28 (22-30) mmol/L BUN 12 (8-23) mg/dl Creatinine 0.8 (0.7-1.2) mg/dl Glucose 104 (70-105) mg/dL Calcium 8.2 L (8.6-10.4) mg/dl Adrenal panel 10/12/19 Range/Units 05:00 Sodium 138 (133-145) mmol/L Potassium 3.9 (3.3-5.1) mmol/L Chloride 99 (96-108) mmol/L Carbon Dioxide 28 (22-30) mmol/L BUN 12 (8-23) mg/dl Creatinine 0.8 (0.7-1.2) mg/dl Glucose 104 (70-105) mg/dL Calcium 8.2 L (8.6-10.4) mg/dl Total Bilirubin 1.1 H (0.0-1.0) mg/dL AST 110 H (0-37) U/l ALT 34 (0-40) U/l Alkaline Phosphatase 82 (39-117) U/L Total Protein 5.3 L (5.9-8.4) gm/dL Albumin 2.7 L (3.2-5.2) gm/dL All other labs normal. A/P Narrative A/P Narrative: Assessment: Chemical luz of upper back and LEFT great toe are improving. Plan: Continue local wound care. MIST therapy and topical antimicrobial ointment and gauze dressings. Following patient intermittently, during his hospitalization. Time Spent With Patient Time: Total time spent is greater than 50% in coordination of care (as documented) at patient's floor/unit and/or counseling patient: Total time spent with greater than 50% in coordination of care (as documented) at patient's floor/unit and/or counseling patient:: 15 - 24 minutes
[2019-10-12] MEDS: SENNOSIDES 1 TABLET PO SCH (21:08)
[2019-10-13] MEDS: 0.9 % SODIUM CHLORIDE 10 ML SYRINGE IV SCH (05:36)
[2019-10-13] MEDS: INSULIN LISPRO 1 UNIT/0.01 ML UNIT SQ SCH ×2 (07:43→11:47)
[2019-10-13] MEDS: FOLIC ACID 1 MG TABLET PO SCH (08:46)
[2019-10-13] MEDS: ASPIRIN 81 MG TAB.CHEW PO SCH (08:47)
[2019-10-13] MEDS: PANTOPRAZOLE 40 MG TABLET PO SCH (08:47)
[2019-10-13] MEDS: VITAMIN B COMPLEX 1 CAPSULE PO SCH (08:47)
[2019-10-13] MEDS: CYANOCOBALAMIN (VITAMIN B-12) 500 MCG TABLET PO SCH (08:47)
[2019-10-13] MEDS: MULTIVIT,THER IRON,CA,FA & MIN 1 TABLET PO SCH (08:48)
[2019-10-13] MEDS: GABAPENTIN 300 MG CAPSULE PO SCH ×2 (08:48→12:31)
[2019-10-13] MEDS: ENOXAPARIN 40 MG/0.4 ML SYRINGE SQ SCH (08:48)
[2019-10-13] MEDS: DOCUSATE SODIUM 100 MG CAPSULE PO SCH (08:49)
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
[2019-10-14] MEDS ORDERED: ALENDRONATE SODIUM 70 MG TABLET PO SCH (07:30)
== END 2019-10-13 12:45 | DRG 918 ==
LOC: ED 13:29 → MEDSUR 22:43
PROVIDERS: ADMIT Internal Medicine; ATTEND Internal Medicine